=== PATIENT | female | born 1975 | race African-American/Black ===

== ENCOUNTER 2019-12-11 16:34 | Outpatient (CLI) | payer OTHER, BC, SELFPAY ==
--- NOTE | 2019-12-11 16:51 | ECG_ITS ---
Measurements Intervals [place] Rate: 67 P: 55 HI: 177 QRS: 57 QRSD: 88 T: 73 QT: 390 QTc: 412 Interpretive Statements SINUS RHYTHM POSSIBLE LEFT ATRIAL ENLARGEMENT BORDERLINE R WAVE PROGRESSION, ANTERIOR LEADS BORDERLINE ECG Electronically Signed On 12-11-2019 20:39:09 CDT by Ramakrishna Aquino D.O.
[2019-12-11 17:32] LABS: Hematocrit 37.4 % (37.0-47.0)
[2019-12-11 18:12] LABS: Albumin Level 3.9 g/dL (3.5-5.1); Prealbumin 21.6 mg/dL (17.6-36.0)
[2019-12-20 10:20] LABS: Vitamin B1 107
== END 2019-12-11 16:35 | disposition home or self-care (01) ==
PROVIDERS: Surgery Plastic and Reconstructive Surgery; Visit Provider Anesthesiology
DX: Z41.1 Encounter for cosmetic surgery (principal); Z01.818 Encounter for other preprocedural examination; R94.31 Abnormal electrocardiogram [ECG] [EKG]
CPT/HCPCS: 36415; 82040; 84134; 84425; 85014; 85018; 93005

== ENCOUNTER 2019-12-21 00:19 | Outpatient (CLI) | payer OTHER, BC, SELFPAY ==
[2019-12-21 17:37] LABS: SARS-CoV-2 RNA PCR Positive
== END 2019-12-21 00:20 | disposition home or self-care (01) ==
LOC: ANHCOVIDDT 00:19
PROVIDERS: Visit Provider Surgery Plastic and Reconstructive Surgery
DX: Z01.812 Encounter for preprocedural laboratory examination (principal); U07.1 COVID-19
CPT/HCPCS: 87635; C9803; U0003

== ENCOUNTER 2019-12-21 08:25 | Outpatient (CLI) | payer OTHER, BC, SELFPAY ==
[2019-12-21 09:17] LABS: Iron 24 ug/dL (37-170)
== END 2019-12-21 08:26 | disposition home or self-care (01) ==
PROVIDERS: Visit Provider Surgery Plastic and Reconstructive Surgery
DX: L57.4 Cutis laxa senilis (principal)
CPT/HCPCS: 36415; 83540

== ENCOUNTER 2020-01-29 16:56 | Outpatient (CLI) | payer OTHER, BC, SELFPAY ==
--- NOTE | ~2020-01-29 | XR_ITS ---
EXAMINATION: XR chest 2V DATE: 01/29/2020 17:14 INDICATION: Shortness of breath, cough and chest pain TECHNIQUE: PA and lateral views of the chest were obtained. COMPARISON: Chest radiograph dated 12/20/2016 FINDINGS: Increase in confluent airspace opacities in the left mid and lower lung zone consistent with worsenin g pneumonia. Additional less prominent airspace opacities in the right lower lung zone also likely re lated to pneumonia appear unchanged. No pneumothorax or definitive pleural effusion. Cardiomegaly. Ch olecystectomy clips in right upper quadrant. IMPRESSION: 1. Bilateral airspace opacities more prominent than with interval increase in the left mid and lower lung zones consistent with worsening pneumonia. 2. Cardiomegaly. Reviewed, dictated and finalized at location H. WASHER IMPRESSION: 1. Bilateral airspace opacities more prominent than with interval increase in t he left mid and lower lung zones consistent with worsening pneumonia. 2. Cardiomegaly.
== END 2020-01-29 16:57 | disposition home or self-care (01) ==
PROVIDERS: PCP Physician Assistant; Visit Provider Internal Medicine Rheumatology
DX: R06.02 Shortness of breath (principal); R07.9 Chest pain, unspecified; R05 Cough; I51.7 Cardiomegaly; R91.8 Other nonspecific abnormal finding of lung field
CPT/HCPCS: 71046

== ENCOUNTER 2020-02-04 07:33 | Outpatient (CLI) | payer OTHER, BC, SELFPAY ==
--- NOTE | ~2020-02-04 | MM_ITS ---
EXAMINATION: MM screening qian BI w ngozi HISTORY: Screening mammogram TECHNIQUE: Craniocaudal and mediolateral oblique 3-D tomosynthesis images were obtained and synthetic 2-D images were generated. CAD analysis was submitted and interpreted. COMPARISON: 03/15/2017 bilateral digital screening mammogram BREAST PARENCHYMAL COMPOSITION: There are scattered areas of fibroglandular density. FINDINGS: Status post bilateral reduction mammoplasty since 2018, with corresponding postoperative ch anges/scarring involving primarily the lower mid breast, left greater than right. Benign likely calci fication of fat necrosis is noted in the lower mid left breast. Otherwise there is no evidence of suspicious mass, calcification, or architectural distortion to sugg est malignancy in either breast. IMPRESSION: 1. Postoperative change from reduction mammoplasty of both breasts since 03/15/2017. No mammographic e vidence of malignancy. 2. Recommend routine screening mammography in one year. BI-RADS Category 2: Benign finding(s). Reviewed, dictated and finalized at location A. H STOCK SORTER IMPRESSION: 1. Postoperative change from reduction mammoplasty of both breasts since 018. No mammographic evidence of malignancy. 2. Recommend routine screening mammography in one year. BI-RADS Category 2: Benign finding(s).
== END 2020-02-04 07:34 | disposition home or self-care (01) ==
PROVIDERS: PCP Physician Assistant; Visit Provider Obstetrics & Gynecology
DX: Z12.31 Encounter for screening mammogram for malignant neoplasm of breast (principal)
CPT/HCPCS: 77063; 77067

== ENCOUNTER 2020-02-26 11:04 | Outpatient (CLI) | payer OTHER, BC, SELFPAY ==
--- NOTE | ~2020-02-26 | XR_ITS ---
EXAMINATION: XR chest 2V EXAM DATE: 02/26/2020 11:22 INDICATION: Shortness of breath, cough. Chronic. TECHNIQUE: Frontal and lateral projections of the chest obtained and reviewed. Comparison is made to prior examination from 01/29/2020. FINDINGS: Persistent moderate amount of chronic left-sided, small to moderate amount of right-sided ill-defined airspace disease. No pneumothorax or pleural effusion. Mild cardiomegaly. There are no os seous abnormalities identified. IMPRESSION: Bilateral chronic airspace disease, probably inflammatory or infectious etiology. Cardiom egaly. Reviewed, dictated and finalized at location B. CLEANER IMPRESSION: Bilateral chronic airspace disease, probably inflammatory or infect ious etiology. Cardiomegaly.
== END 2020-02-26 11:05 | disposition home or self-care (01) ==
LOC: ANHIMG 11:09
PROVIDERS: PCP Physician Assistant; Visit Provider Internal Medicine Pulmonary Disease
DX: R91.8 Other nonspecific abnormal finding of lung field (principal); I51.7 Cardiomegaly
CPT/HCPCS: 71046

== ENCOUNTER 2020-03-12 16:49 | Outpatient (CLI) | payer OTHER, BC, SELFPAY ==
--- NOTE | ~2020-03-12 | XR_ITS ---
EXAMINATION: XR chest 2V EXAM DATE: 03/12/2020 17:36 INDICATION: Restrictive lung disease, bronchitis. TECHNIQUE: Frontal and lateral projections of the chest obtained and reviewed. Comparison is made to prior examination from 02/26/2020. FINDINGS: There is cardiomegaly. Again there is extensive abnormal reticulation. If patient does not have infection or CHF clinically, then could be chronic interstitial lung disease. Consider CT chest without contrast. There is no pneumothorax suspected. There are no pleural effusions. Mild cardiomega ly is unchanged. IMPRESSION: Bibasilar predominant abnormal reticulation, could be edema, infection, chronic interstit ial lung disease. Clinical correlation, consider chest CT without contrast. Reviewed, dictated and finalized at location A. DER OPERATOR IMPRESSION: Bibasilar predominant abnormal reticulation, could be edema, infect ion, chronic interstitial lung disease. Clinical correlation, consider chest CT without contrast.
[2020-03-13 07:56] LABS: SARS-CoV-2 IgG Reactive
== END 2020-03-12 16:50 | disposition home or self-care (01) ==
PROVIDERS: PCP Physician Assistant; Visit Provider Internal Medicine Pulmonary Disease
DX: J20.9 Acute bronchitis, unspecified (principal); J98.09 Other diseases of bronchus, not elsewhere classified; U07.1 COVID-19
CPT/HCPCS: 36415; 71046; 86769

== ENCOUNTER 2020-03-23 16:22 | Outpatient (CLI) | payer OTHER, BC, SELFPAY ==
--- NOTE | ~2020-03-23 | CT_ITS ---
EXAMINATION:CT chest high resolution wo va DATE: 03/23/2020 16:40 INDICATION: Interstitial lung disease. Scleroderma. TECHNIQUE: Computed tomography (CT) of the chest was performed without intravenous contrast. Automate d exposure control and iterative reconstruction technique were employed. The dose-length product (DLP ) was 351.54 mGy-cm. COMPARISON: Chest CT 02/25/2010, CT abdomen and pelvis 03/31/2016 FINDINGS: There are diffuse patchy areas of lung disease with a lower lung predominance characterized by groundglass opacities, punctate parenchymal calcifications, peripheral septal thickening, and bro nchiectasis. The dominant feature is the groundglass opacities. These findings were present in milder form on 02/25/2010. No honeycombing. No pleural effusion. Cardiomegaly is noted. There is a small pe ricardial effusion. There is mild mediastinal lymphadenopathy, likely reactive. There are changes of cholecystectomy. There is mild thoracic spondylosis. IMPRESSION: 1. Diffuse chronic lung disease with worsening from 03/31/2016, consistent with chronic interstitial l minerva disease in a pattern of nonspecific interstitial pneumonia (NSIP). 2. Mild mediastinal lymphadenopathy, likely reactive. 3. Cardiomegaly. 4. Small pericardial effusion. Reviewed, dictated and finalized at location B. NESS PROGRAMMER IMPRESSION: 1. Diffuse chronic lung disease with worsening from 03/31/2016, consistent with chronic interstitial lung disease in a pattern of nonspecific interstitial pneu monia (NSIP). 2. Mild mediastinal lymphadenopathy, likely reactive. 3. Cardiomegaly. 4. Small pericardial effusion.
== END 2020-03-23 16:23 | disposition home or self-care (01) ==
PROVIDERS: PCP Physician Assistant; Visit Provider Internal Medicine Pulmonary Disease
DX: J84.9 Interstitial pulmonary disease, unspecified (principal); M34.9 Systemic sclerosis, unspecified; I31.3 Pericardial effusion (noninflammatory)
CPT/HCPCS: 71250

== ENCOUNTER 2020-06-05 10:28 | Outpatient (CLI) | payer OTHER, BC, SELFPAY ==
[2020-06-05 12:36] LABS: Free T4 Free Thyroxine 1.11 ng/mL (0.78-2.19)
[2020-06-05 13:56] LABS: Erythrocyte Sedimentation Rate 62 mm/hr (0-20)
[2020-06-08 04:01] LABS: Thyroid Peroxidase Antibodies 2 IU/mL (<9)
[2020-06-10 19:53] LABS: Thyrotropin Receptor Antibody <1.00 IU/L (<=2.00)
== END 2020-06-05 10:29 | disposition home or self-care (01) ==
PROVIDERS: PCP Physician Assistant; Referring Provider Internal Medicine Endocrinology, Diabetes & Metabolism; Visit Provider Internal Medicine Endocrinology, Diabetes & Metabolism
DX: E05.90 Thyrotoxicosis, unspecified without thyrotoxic crisis or storm (principal)
CPT/HCPCS: 36415; 83519; 84439; 84443; 84480; 85652; 86376

== ENCOUNTER 2020-10-12 17:05 | Outpatient (CLI) | payer OTHER, BC, SELFPAY ==
--- NOTE | ~2020-10-12 | XR_ITS ---
EXAMINATION: XR chest 2V DATE: 10/12/2020 17:21 INDICATION: Shortness of breath. Pneumonia. TECHNIQUE: PA and lateral views of the chest were obtained. COMPARISON: Chest radiograph dated 03/12/[address] dated 03/23/2020 and 02/25/2010. FINDINGS: Similar pattern of bibasilar predominant interstitial and airspace opacities in the bilateral mid and lower lung zones. No pleural effusion or pneumothorax. Cardiomegaly. Cholecystectomy clips in the ri ght upper quadrant. Visualized bones and soft tissues are unremarkable. IMPRESSION: 1. No significant interval change in basilar predominant interstitial and airspace opacities in the b ilateral mid and lower lung zones with CT appearance and chronologic progression most consistent with chronic interstitial lung disease in a nonspecific gaseous pneumonia (NSIP) pattern. Reviewed, dictated and finalized at location A. IMPRESSION: 1. No significant interval change in basilar predominant interstitial and airsp jarrett opacities in the bilateral mid and lower lung zones with CT appearance and chronologic progression most consistent with chronic interstitial lung disease in a nonspecific gaseous pneumonia (NSIP) pattern.
== END 2020-10-12 17:06 | disposition home or self-care (01) ==
LOC: ANHIMG 17:09
PROVIDERS: PCP Physician Assistant; Visit Provider Internal Medicine Pulmonary Disease
DX: R06.02 Shortness of breath (principal); J44.9 Chronic obstructive pulmonary disease, unspecified; J45.909 Unspecified asthma, uncomplicated
CPT/HCPCS: 71046

== ENCOUNTER 2021-04-21 16:06 | Outpatient (CLI) | payer OTHER, BC, SELFPAY ==
--- NOTE | ~2021-04-21 | XR_ITS ---
XR chest 2V DATE: 04/21/2021 16:28 INDICATION: Secondary pulmonary hypertension. History of scleroderma. TECHNIQUE: PA and lateral views COMPARISON: 10/22/2020 PA and lateral chest FINDINGS: There is cardiomegaly. There are patchy bilateral pulmonary infiltrates and/or interstitial fibrotic change, relatively stable since 10/22/2020. No pleural effusion or pneumothorax. Status post cholecystectomy. IMPRESSION: No significant change of bilateral pulmonary infiltrates and/or fibrotic changes since Reviewed, dictated and finalized at location B. MATIC BUFFER IMPRESSION: No significant change of bilateral pulmonary infiltrates and/or fib rotic changes since 10/22/2020
== END 2021-04-21 16:07 | disposition home or self-care (01) ==
LOC: ANHIMG 16:13
PROVIDERS: PCP Physician Assistant
DX: I27.20 Pulmonary hypertension, unspecified (principal); R91.8 Other nonspecific abnormal finding of lung field
CPT/HCPCS: 71046

== ENCOUNTER 2021-06-16 16:04 | Outpatient (CLI) | payer OTHER, SELFPAY ==
--- NOTE | ~2021-06-16 | CT_ITS ---
EXAMINATION: CT chest high resolution wo ma DATE: 06/16/2021 16:31 INDICATION: Pulmonary fibrosis. TECHNIQUE: Computed tomography (CT) of the chest was performed without intravenous contrast. Automate d exposure control and iterative reconstruction technique were employed. The dose-length product was 287.06 mGy-cm. COMPARISON: 03/23/2020. FINDINGS: Thoracic aorta: Minimal atherosclerotic calcification. Lung parenchyma and airways: Basilar predominant peribronchovascular and groundglass opacities, with innumerable peripheral punctate calcifications, bronchiectasis, and peripheral fibrosis. Thoracic inlet, axillae and chest wall: Unremarkable. Mediastinum: Prominent mediastinal lymph nodes. Heart and pericardium: Mild clinically. Small-volume pericardial effusion. Coronary artery calcifications: Absent. Pleura: No mass. Upper abdomen: No significant finding. Bones: bones IMPRESSION: Stable interstitial lung disease (NSIP pattern), borderline mediastinal lymphadenopathy, cardiomegaly and small pericardial effusion. IMPRESSION: 1. Reviewed, dictated and finalized at location K. IMPRESSION: Stable interstitial lung disease (NSIP pattern), borderline mediastinal lymphad enopathy, cardiomegaly and small pericardial effusion. IMPRESSION: 1.
--- NOTE | ~2021-06-16 | XR_ITS ---
EXAMINATION: XR chest 2V Exam Date/Time: 06/16/2021 16:23 CDT CLINICAL HISTORY: PULMONARY FIBROSIS, COUGH/SOB FEW WEEKS AGO - GETTING BETTER Comparison: Chest x-ray 04/21/2021, chest CT 03/23/2020. RESULT: Lines, tubes, and devices: Cholecystectomy clips. Lungs and pleura: Stable coarse mid and lower lung interstitial opacities. Cardiomediastinal silhouette: Stable cardiomediastinal silhouette. Other: No acute osseous or upper abdominal finding. IMPRESSION: Stable interstitial lung disease. Stable mild cardiomegaly. Reviewed, dictated and finalized at location K.
== END 2021-06-16 16:05 | disposition home or self-care (01) ==
PROVIDERS: PCP Physician Assistant; Visit Provider Internal Medicine Pulmonary Disease
DX: J84.10 Pulmonary fibrosis, unspecified (principal); J84.9 Interstitial pulmonary disease, unspecified
CPT/HCPCS: 71046; 71250

== ENCOUNTER 2021-07-07 14:50 | Outpatient (CLI) | payer OTHER, SELFPAY ==
--- NOTE | 2021-07-07 | ECHO_ITS ---
Patient Info Name: Gayle Jorge Age: 46 years : 1975 Gender: Female Ht: 65 in Wt: 253 lbs BSA: 2.35 m2 HR: 75 bpm BP: 127 / 88 mmHg Heart Rhythm: Sinus Rhythm Technical Quality: Fair Exam Date: 07/07/2021 3:07 PM Exam Location: [facility] Pulmonary Patient Status: Outpatient Admit Date: 07/07/2021 Staff Ordering Physician: DelbertJohn MD Journalists And Other Writers: Alyson Monk RDCS Attending Provider: Delbert, John Sin MD Referring Physician: Shane NEWSOME; Exam Type: CA echo doppler color flow Study Info Indications - pulmonary fibrosis Complete two-dimensional, color flow and Doppler transthoracic echocardiogram is performed. Summary 1. Complete two-dimensional, color flow and Doppler transthoracic echocardiogram is performed. 2. Left ventricular chamber dimension is normal. 3. Left ventricular systolic function is normal, estimated at 55-60%. 4. The left ventricular diastolic function is abnormal. 5. E/e' 10 is mildly elevated. 6. Left atrial chamber dimension is mildly enlarged. 7. There is mild tricuspid valve regurgitation. 8. Moderate pulmonary hypertension, estimated pulmonary arterial systolic pressure is 54 mmHg. 9. There is trace pulmonic regurgitation. 10. There is small circumferential pericardial effusion. Left Ventricle E/e' 10 is mildly elevated. Left ventricular chamber dimension is normal. Left ventricular systolic function is normal, estimated at 55-60%. The left ventricular diastolic function is abnormal. Right Ventricle Right ventricular systolic function is normal and with normal TAPSE 3.0 cm. Right ventricular chamber dimension is normal. Left Atria Left atrial chamber dimension is mildly enlarged. Right Atria Right atrial chamber dimension is normal. Aortic Valve The aortic valve is trileaflet. There is no aortic valve stenosis. There is no aortic valve regurgitation. Pulmonic Valve There is trace pulmonic regurgitation. Mitral Valve There is no mitral valve stenosis. There is no mitral valve regurgitation. Tricuspid Valve There is mild tricuspid valve regurgitation. Moderate pulmonary hypertension, estimated pulmonary arterial systolic pressure is 54 mmHg. Pericardium/Pleural No cardiac tamponade. There is small circumferential pericardial effusion. Inferior Vena Cava Normal inferior vena cava with >50% collapse upon inspiration consistent with normal right atrial pressure, 5 mmHg. Aorta The aortic root size at the sinus of Valsalva is normal. Left Ventricular Outflow Tract Name Value Normal LVOT 2D LVOT Diameter 2.0 cm LVOT Doppler LVOT Peak Gradient 5 mmHg LVOT Mean Gradient 2 mmHg LVOT VTI 22 cm LVOT VTI/AV VTI Ratio 0.6 LVOT Stroke Volume 68 ml LVOT CO 4.6 l/min LVOT CI 1.9 l/min/m2 Pulmonic Valve Name
== END 2021-07-07 14:51 | disposition home or self-care (01) ==
LOC: ANHCARD 14:51
PROVIDERS: PCP Physician Assistant; Visit Provider Internal Medicine Pulmonary Disease
DX: J84.10 Pulmonary fibrosis, unspecified (principal); I36.1 Nonrheumatic tricuspid (valve) insufficiency; I27.20 Pulmonary hypertension, unspecified
CPT/HCPCS: 93306

== ENCOUNTER 2021-12-01 17:05 | Outpatient (CLI) | payer OTHER, SELFPAY ==
[2021-12-01 17:26] LABS: Hematocrit 39.8 % (37.0-47.0); Hemoglobin 12.4 g/dL (12.0-15.0)
== END 2021-12-01 17:06 | disposition home or self-care (01) ==
PROVIDERS: PCP Physician Assistant; Referring Provider Anesthesiology; Visit Provider Obstetrics & Gynecology
DX: Z01.818 Encounter for other preprocedural examination (principal); D64.9 Anemia, unspecified; N92.0 Excessive and frequent menstruation with regular cycle
CPT/HCPCS: 36415; 85014; 85018; 86850; 86900; 86901

== ENCOUNTER 2021-12-07 01:53 | Day surgery (SDC) | payer OTHER, SELFPAY ==
[2021-11-30 10:06] VITALS: BMI 39.2
--- NOTE | 2021-11-30 10:17 | PC.NURSE ---
Report to the Outpatient Waiting Room, entrance under the green pavilion located off [facility], at time 6:00 on date 12/07/21. OR Time: 7:30. Time changes happen often and if your time is changed the preop area will call you the afternoon before. - You and your visitor will be asked to self-screen and do not enter if you have any COVID symptoms. - Only one visitor and NO children visitors are allowed at this time. YOU WILL BE ALLOWED 2 VISITORS AT A TIME ONCE YOU ARE IN YOUR ROOM AFTER SURGERY. - The patient visitor is requested to leave or wait in car when not with patient due to restrictions. - A mask is required within the hospital. Patients may have clear liquids (water, carbonated beverages, clear teas, apple juice) until 3 hours prior to surgery (4:30) with a maximum of 20 ounces. - No food from midnight until time of surgery Take the following medications with a SIP of water the morning of surgery: NIFEDIPINE Medications to discontinue per physician: VITAMINS/SUPPLEMENTS Date to take last dose: 12/03/21 ASK ABOUT AZATHIOPRINE AND HYDROXYCHLOROQUINE Please no make-up, nail setswana, hairspray, perfume, deodorant, or body powder the day of surgery. No jewelry (including any body piercings) or valuables the day of surgery, leave them at home. Please take a shower or bath the night before, or the morning of, surgery with an antibacterial soap. Wear comfortable, loose fitting clothing. - Jewelry must be removed prior to entering the operating room. Rings and piercings that are not removed may be cut off. - The hospital will not accept responsibility for valuables. - Please leave all valuables, including medications, at home the day of surgery. If you are going home after surgery, a licensed national flatbed truck driver must drive you home. YOU WILL BE SPENDING AT LEAST 1 NIGHT - NO public transportation without another adult. - We recommend that an adult stay with you for 24 hours following discharge. - We also recommend that you do not drive, make important decision, drink alcoholic beverages, or take any drugs that were not prescribed by your health care provider for at least 24 hours after your discharge time. Follow any additional instructions given to you from your surgeon. If you or anyone in your household have experienced Covid symptoms in the past week, please notify your surgeon or the nurse liaison at the phone number below for possible testing. Telephone instructions given to PANTERA TERAN and asked if any additional questions and then verbalized understanding. Patient advised to call surgeon office or pre surgery nurse liaison [phone] if any additional questions.
--- NOTE | 2021-12-06 12:32 | WPDANESEPPF ---
Anes - Initial Pre Proc Eval Procedure: Operation Date: 12/07/21 07:30 Proposed Procedures p Total Laparoscopic Hysterectomy with Bilateral Salpingectomy - Elliott Orozco MD Date/Time: 12/06/21 12:32 Surgeon: Elliott Orozco MD Pre Op Diagnosis: menorrhaghia Patient Data Age: 46 Gender: F Height: 1.65 m Weight: 107.05 kg Allergies Allergy/AdvReac Type Severity Reaction Status Date / Time shellfish derived Allergy Severe ITCHING, Verified 12/07/21 06:21 SWELLING oxycodone [From Percocet] AdvReac Mild Hallucinati Verified 12/07/21 06:21 ng SHELLFISH Allergy Intermediate TONGUE Uncoded 12/07/21 06:21 SWELLING, ITCHING Home Medications Medication Instructions Recorded Confirmed Type azathioprine 50 mg tablet 50 mg PO DAILY 08/14/19 12/07/21 History hydroxychloroquine 200 mg tablet 200 mg PO DAILY 08/14/19 12/07/21 History (Plaquenil) nifedipine 60 mg tablet,extended 60 mg PO DAILY 08/14/19 12/07/21 History release cholecalciferol (vitamin D3) 125 125 mcg PO DAILY 06/02/20 12/07/21 History mcg (5,000 unit) capsule ferrous fumarate 325 mg (106 mg 325 mg PO DAILY 06/02/20 12/07/21 History iron) tablet (Ferretts) Patient hx anesthesia problems: none Family hx anesthesia problems: none Results Review: All pre-operative results and documents have been reviewed as part of the pre-operative evaluation. [facility] Past Medical History Medical History (Updated 12/06/21 @ 12:33 by Rafat oHoks MD) Morbid obesity with BMI of 40.0-44.9, adult Scleroderma Surgical History Surgical History History of bilateral breast reduction surgery 2018 History of delivery 2013 History of cholecystectomy 2017 History of tonsillectomy and adenoidectomy 1992 Family History Family History Mother Family history of elevated blood lipids Father No problems noted. Other Diabetes mellitus Social History Social History Smoking status: Never smoker Second hand tobacco smoke exposure: No Alcohol intake: current Drinks per week: 2 Substance use: never Substance use type: does not use Living arrangements: with family Spiritual care concerns: No Anes - Eval Final PreProcedure Day of Procedure 12/06/21 12:32 Patient weight: obese Heart: regular rate and rhythm Lungs: clear to auscultation and normal air movement Airway: Mallampati scale class II Neurological: alert and oriented Last oral intake: >/= 8 hours ASA classification: III Emergent: no Anesthetic plan: proceed Anesthesia type and monitoring: general ETT Results Review: All pre-operative results and documents have been reviewed as part of the pre-operative evaluation. Informed Consent: The patient's anesthetic plan and its attendant risks and benefits were discussed with the patient/family/POA. Questions were solicited and answers provided to the satisfaction of the patient/family/POA.
[2021-12-07] VITALS (10 sets, daily range): BP systolic 115–150; BP diastolic 51–71; PULSE 51–65; RESP 16–20; TEMP 36.3–36.8; O2SAT 98–100
[2021-12-07] MEDS: ACETAMINOPHEN 500 MG TABLET 1000 MG PO (06:33)
[2021-12-07] MEDS: LACTATED RINGERS 1,000 ML 30 ML IV CONT (06:40)
[2021-12-07] MEDS: KETOROLAC 15 MG/ML VIAL (*BKC) IV PUSH (06:45)
--- NOTE | 2021-12-07 07:10 | WPDHPUPDATE1 ---
History and Physical Update Update Date/Time: 12/07/21 07:10 History and Physical has been reviewed, including an updated exam of the patient. There are NO changes in the patient's condition. Risks, benefits, and alternatives have been discussed and questions answered. Patient agrees to proceed with procedure.
[2021-12-07] MEDS: ceFAZolin 2 GM/D5W 50 ML 2 GM/50 ML BAG IVPB (07:27)
[2021-12-07] MEDS: ceFAZolin SODIUM 1 GM VIAL (08:13)
--- NOTE | 2021-12-07 09:16 | W.PM.PROC2 ---
Procedure Note - Detailed Date of Procedure 12/07/21 Pre-op Diagnosis menorrhaghia, fibroid tumors Post-op Diagnosis Same (With adhesions) Procedure Performed Total laparoscopic hysterectomy. Surgeon Elliott Orozco MD Anesthesia General Findings Adhesions over the ovaries uterus and tubes. Thin. Enlarged uterus with fibroids normal-appearing tubes and ovaries. Description of Procedure This patient was taken to the operating room. She was prepped and draped in the dorsal lithotomy position after induction of general anesthesia. The uterine manipulator and Neno cup were placed. This was done with a speculum and tenaculum. The speculum was placed. The cervix was grasped with a tenaculum. The stay sutures were placed at 3 and 9:00 a.m.. The stay sutures of 0 Vicryl were brought through the appropriately sized Neno cup. The tip of the ANASTASIYA manipulator was placed in the intrauterine cavity. The cup was slid into place around the cervix and into the fornices. It was locked into place. The sutures were then wrapped around the handle and tied under tension. A 5 mm skin incision was made in the left upper quadrant the abdomen. A 5 mm trocar was inserted into the intrauterine cavity under direct visualization of the scope. Pneumoperitoneum was achieved. A left lower quadrant 11 mm incision was made with scalpel. An 11 mm trocar was inserted into the anterior abdominal cavity under direct visualization the scope. A 5 mm infraumbilical incision was made with a scalpel and a 5 mm trocar was inserted the intra-abdominal cavity under direct visualization of the scope. Bilateral ureteral lysis was performed. This was done from the pelvic brim down to the uterine artery. This was done with careful dissection using sharp and blunt dissection. The fallopian tubes were removed bilaterally. The mesosalpinx around the fallopian tubes were cauterized transected with LigaSure cautery. This was done in a bilateral fashion from the ovary to the uterine cornua. The fallopian tube was transected at the uterine cornu and amputated. The tube was taken out the left lower quadrant trocar site. In a stepwise fashion along the lateral aspects of the uterus the round ligament and broad ligaments were cauterized transected down to the level of the uterine arteries. A bladder flap was created in the bladder was moved distally to the end of the cervix and over the Neno cup. The bilateral uterine arteries were cauterized and transected. Colpotomy was then performed. In a circumferential fashion the vagina was transected using unipolar cautery. The incision was made down on the Neno cup. The uterus and cervix were taken out through the vagina. A pneumo occluder was placed in the vagina. The vaginal cuff was closed with a 0 V lock suture in a running fashion. The pelvis was irrigated with copious amounts antibiotic irrigation. The ureters were again examined and found to be intact and flowing freely under the uterine arteries into the bladder. The bladder was intact. It was examined directly. The vagina was irrigated with Betadine solution after removal of the Pneumo occluder. The patient was taken to recovery room. She was stable condition. Sponge lap and needle counts were correct x2. Estimated Blood Loss 50 Drains Yes Packing No Pathology Yes Complications No immediate complications Condition Stable Disposition Floor
[2021-12-07] MEDS: fentaNYL CITRATE INJ (*CRX) 100 MCG/2 ML VIAL 25 MCG IV PUSH ×3 (09:56→10:33)
--- NOTE | 2021-12-07 09:59 | SUR.PHASEI ---
0958: Simple mask removed.
[2021-12-07] MEDS: KETOROLAC 30 MG/ML VIAL (*BKC) IV PUSH (11:00)
[2021-12-07] MEDS: HYDROcodone/acetaminophen (*CRX) 10-325 MG TABLET 1 TAB PO (15:15)
[2021-12-07] MEDS: SIMETHICONE 80 MG TAB.CHEW PO (15:15)
[2021-12-08 04:50] VITALS: BP 122/56; PULSE 81; RESP 16; TEMP 36.9
--- NOTE | 2021-12-08 07:20 | PM.GYNPNOP ---
DIRECTOR OF BANDS - A/P Postoperative Procedures: Procedures Operation Date: 12/07/21 07:30 Actual Procedure Side Surgeon p Total Laparoscopic Hysterectomy with Bilateral Salpingectomy Bilateral Elliott Orozco MD Postoperative day: 1 Postoperative status: doing well Postoperative plan: see orders Time Spent With Patient Time: Total time spent is greater than 50% in coordination of care (as documented) at patient's floor/unit and/or counseling patient: Time with patient: less than 15 minutes DIRECTOR OF BANDS- PN:Subj Post-Op Subjective Date/time seen: 12/08/21 07:20 Subjective: patient reports feeling better, patient has no complaints and pain is well controlled Exam Const: General: healthy appearing, comfortable and no acute distress Resp: Auscultation: clear to auscultation bilaterally, no rales, no rhonchi and no wheezes Cardio: Rate: regular rate Heart sounds: no click, no murmurs and no rubs GI: Inspection: non-distended Auscultation: normal bowel sounds Extrem: General: normal to inspection, no pedal edema and no calf tenderness DIRECTOR OF BANDS - PN: Obj Data Vital Signs Vital Signs: Vital Signs - 24 hr 12/07/21 09:26 12/07/21 09:40 12/07/21 09:55 Temperature 97.8 F Pulse Rate 58 L 58 L 53 L Respiratory Rate 16 18 16 Blood Pressure 115/64 125/67 131/71 Pulse Oximetry 100 100 100 Oxygen Delivery Simple Face Mask Simple Face Mask Simple Face Mask Oxygen Flow Rate 6 8 8 12/07/21 10:10 12/07/21 10:25 12/07/21 11:52 Temperature 97.4 F L Pulse Rate 55 L 53 L 51 L Respiratory Rate 18 16 16 Blood Pressure 131/69 142/70 H 134/68 Pulse Oximetry 98 98 98 Oxygen Delivery Nasal Cannula Nasal Cannula Oxygen Flow Rate 1 1 12/07/21 10:45 12/07/21 15:30 12/07/21 19:30 Temperature 98.2 F Pulse Rate 51 L 51 L 65 Respiratory Rate 16 16 16 Blood Pressure 150/69 H Pulse Oximetry 98 98 Oxygen Delivery Nasal Cannula Room Air Oxygen Flow Rate 1 12/08/21 04:50 Temperature 98.5 F Pulse Rate 81 Respiratory Rate 16 Blood Pressure 122/56 L Pulse Oximetry Oxygen Delivery Oxygen Flow Rate Intake/Output Intake/Output: Intake & Output 10/02/22 12/06/21 12/07/21 12/08/21 23:59 23:59 23:59 23:59 Intake Total 900 Output Total 1680 Balance -780 Meds/Results Medications: Active Medications Generic Name Dose Route Start Last Admin Trade Name Freq PRN Reason Stop Dose Admin Hydrocodone Bitart/Acetaminophen 1 tab 12/07/21 10:35 Hydrocodone/Acetaminophen (*Crx) 5-325 Mg Tablet PO Q3H PRN Pain Rated 5 or Less Hydrocodone Bitart/Acetaminophen 1 tab 12/07/21 10:35 12/07/21 15:15 Hydrocodone/Acetaminophen (*Crx) 10-325 Mg Tablet PO 1 tab Q3H PRN Administration Pain Rated 6 or Greater Azathioprine 50 mg 12/08/21 09:00 Azathioprine 50 Mg Tablet PO DAILY ON LICENSE OF [facility] Hydroxychloroquine Sulfate 200 mg 12/08/21 09:00 Hydroxychloroquine Sulfate 200 Mg Tablet PO DAILY ON LICENSE OF [facility] Ibuprofen 600 mg 12/07/21 10:35 Ibuprofen 600 Mg Tablet PO Q6H PRN Cramping Ketorolac Tromethamine 30 mg 12/07/21 10:35 12/07/21 11:00 Ketorolac 30 Mg/Ml Vial (*Bkc) IV PUSH 12/12/21 10:34 30 mg Q6H PRN Administration Pain Rated 4-6 Naloxone HCl 0.1 mg 12/07/21 10:35 Naloxone Hcl 0.4 Mg/Ml Vial IV PUSH Q2M PRN Respiratory rate less than 10 Nifedipine 60 mg 12/08/21 09:00 Nifedipine 30 Mg Tab.Er.24 PO DAILY ON LICENSE OF [facility] Ondansetron HCl 4 mg 12/07/21 10:35 Ondansetron Inj 4 Mg/2 Ml Vial IV PUSH Q6H PRN Nausea And Vomiting Simethicone 80 mg 12/07/21 15:13 12/07/21 15:15 Simethicone 80 Mg Tab.Chew PO 80 mg Q2HR PRN Administration Gas Discomfort
[2021-12-08] MEDS: HYDROcodone/acetaminophen (*CRX) 5-325 MG TABLET 1 TAB PO (07:39)
[2021-12-08 07:40] VITALS: BP 123/55; PULSE 71; RESP 18; TEMP 36.1; O2SAT 97
[2021-12-08] MEDS: IBUPROFEN 600 MG TABLET PO (07:40)
--- NOTE | 2021-12-08 09:26 | WPDANESPN ---
Anes - Prog Note Post-Op Date/Time: 12/08/21 09:26 Cardiovascular status: normal Respiratory status: normal Airway patency: baseline Mental status: baseline Post-Op hydration status: normal Vital Signs: Last Vital Signs Temp 97.0 F L 12/08/21 07:40 Pulse 71 12/08/21 07:40 Resp 18 12/08/21 07:40 BP 123/55 L 12/08/21 07:40 Pulse Ox 97 12/08/21 07:40 O2 Del Method Room Air 12/08/21 07:40 O2 Flow Rate 1 12/07/21 10:45 Pain Score (VAS): 0/10 I/O: Intake & Output 12/07/21 12/08/21 12/08/21 23:59 07:59 15:59 Intake Total 0 Balance 0 Post-procedural complaints: none Patient Feedback: Patient satisfied with anesthetic care.
== END 2021-12-08 09:45 | disposition home or self-care (01) ==
LOC: ANHSURGERY 06:04 → ANHOB2 10:36
PROVIDERS: PCP Physician Assistant; Visit Provider Obstetrics & Gynecology
PROC: 0UT9FZZ Resection of Uterus, Via Natural or Artificial Opening With Percutaneous Endoscopic Assistance (ICD-10-PCS; CPT 58571; principal; 2021-12-07 07:30)
DX: N92.0 Excessive and frequent menstruation with regular cycle (principal); N72 Inflammatory disease of cervix uteri; N80.03 Adenomyosis of the uterus; D25.9 Leiomyoma of uterus, unspecified; N70.91 Salpingitis, unspecified; N73.6 Female pelvic peritoneal adhesions (postinfective); M34.9 Systemic sclerosis, unspecified; E66.01 Morbid (severe) obesity due to excess calories; Z68.41 Body mass index [BMI] 40.0-44.9, adult
CPT/HCPCS: 58571; 36415; 85014; 85018; 86850; 86900; 86901; 88307; 99199; A9270; J0690; J1100; J1170; J1885; J2250; J2405; J2704; J2710; J3010; J7120

== ENCOUNTER 2021-12-29 09:31 | Outpatient (CLI) | payer OTHER, SELFPAY ==
--- NOTE | ~2021-12-29 | XR_ITS ---
XR chest 2V 12/29/2021 09:49 Indication: Right heart catheterization. Procedure: 2 view chest Comparison: Comparison to multiple prior studies sequentially, with oldest reviewed study dated 09/2020. Findings: Cardiomegaly. Patchy bilateral airspace disease is unchanged, which may represent a combina tion of pneumonia and/or fibrosis. No pleural effusion or pneumothorax. There are cholecystectomy cli ps. Impression: 1: Stable bilateral airspace disease, left greater than right, which may represent pneumonia and/or f ibrosis. Reviewed, dictated and finalized at location B. Impression: 1: Stable bilateral airspace disease, left greater than right, which may repres ent pneumonia and/or fibrosis.
== END 2021-12-29 09:32 | disposition home or self-care (01) ==
PROVIDERS: PCP Physician Assistant; Visit Provider Internal Medicine Pulmonary Disease
DX: Z98.890 Other specified postprocedural states (principal); R91.8 Other nonspecific abnormal finding of lung field
CPT/HCPCS: 71046

== ENCOUNTER 2022-01-14 08:02 | Outpatient (CLI) | payer OTHER, SELFPAY ==
--- NOTE | 2022-01-14 12:39 | WPDPFTINT ---
PFT Procedure Performed PFT Procedure Performed Plethysmography (Lung Vol) Diffusing Cap (DLCO) Flow Vol Loop Spirometry w/o Bronchodil PFT Interpretation Lung volumes were measured with the body plethysmography method. The diminished amcmue-vjw-mzzlz lung volumes are indicative of restrictive respiratory disease. Spirometry showed diminished expiratory flow rates and a normal FEV1 to FVC ratio of 81%, also consistent with restrictive respiratory disease. Lung diffusion capacity is severely reduced at 33% predicted. The flow volume loop is consistent with restrictive respiratory disease. Impression: Moderate restrictive respiratory disease. Severely reduced lung diffusion capacity.
== END 2022-01-14 08:03 | disposition home or self-care (01) ==
PROVIDERS: PCP Physician Assistant; Visit Provider Internal Medicine Pulmonary Disease
DX: R94.2 Abnormal results of pulmonary function studies (principal); Z79.890 Hormone replacement therapy
CPT/HCPCS: 94375; 94726; 94729

== ENCOUNTER 2022-05-25 15:41 | Outpatient (CLI) | payer OTHER, SELFPAY ==
--- NOTE | ~2022-05-25 | US_ITS ---
Thyroid ultrasound. Clinical History: Abnormal thyroid function tests Findings: Real-time sonography of the thyroid gland was performed. The right lobe measures 5.2 x 1.3 x 1.3 cm. The left lobe measures 5.3 x 1.0 x 1.7 cm. The isthmus is 4 mm in AP diameter. Thyroid par enchyma is mildly heterogeneous without discrete nodule. Impression: Minimally heterogeneous parenchyma without discrete nodule. Depending on clinical status and thyroid function results, consider nuclear medicine thyroid uptake scan as indicated. Reviewed, dictated and finalized at location M. Impression: Minimally heterogeneous parenchyma without discrete nodule. Depending on clinic al status and thyroid function results, consider nuclear medicine thyroid uptak e scan as indicated.
== END 2022-05-25 15:42 | disposition home or self-care (01) ==
PROVIDERS: PCP Physician Assistant; Visit Provider Internal Medicine
DX: R94.6 Abnormal results of thyroid function studies (principal)
CPT/HCPCS: 76536

== ENCOUNTER 2024-02-29 11:22 | Outpatient (CLI) | payer OTHER, SELFPAY ==
--- NOTE | ~2024-02-29 | MMUS_ITS ---
EXAMINATION TYPE: US breast LT limited, MM diagnostic qian BI w ngozi COMPARISON: 02/04/2020 REASON FOR STUDY: 48-year-old woman with a history of reduction mammoplasty in 2018 presents with pal pable abnormality in the lower inner quadrant of the left breast for diagnostic evaluation. TECHNIQUE: Bilateral mediolateral oblique and craniocaudal views were obtained digitally with 3-D ma mmogram (digital breast tomosynthesis) with CAD. Computer-aided detection was utilized in evaluation of this examination. BREAST PARENCHYMAL COMPOSITION:Not Dense. There are scattered areas of fibroglandular density. FINDINGS: Indeterminate parenchymal pattern (architectural distortion) within the lower inner left breast (with in the region of palpable concern). No suspicious microcalcifications are identified. No discrete masses are noted. The right breast is unremarkable. TECHNIQUE: Sonographic evaluation of the left breast was performed, corresponding to the region of palpable conc murtaza. FINDINGS: At the 5:00 position of the left breast approximately 5 cm from the nipple is a shadowing focus of de creased echogenicity with angular margins for which ultrasound-guided biopsy is recommended. Sonographic evaluation of the remainder of the left breast demonstrates benign fibroglandular element s without a cystic or solid lesion of concern. IMPRESSION: Findings within the region of palpable concern for which ultrasound-guided biopsy is recommended. BI-RADS CATEGORY: 5: Highly suggestive of malignancy for which tissue diagnosis is needed. Reviewed, dictated and finalized at location A. N COMBINE DRIVER IMPRESSION: Findings within the region of palpable concern for which ultrasound-guided biop sy is recommended. BI-RADS CATEGORY: 5: Highly suggestive of malignancy for which tissue diagnosis is needed.
== END 2024-02-29 11:23 | disposition home or self-care (01) ==
PROVIDERS: PCP Physician Assistant; Visit Provider Nurse Practitioner
DX: R92.8 Other abnormal and inconclusive findings on diagnostic imaging of breast (principal)
CPT/HCPCS: 76642; 77062; 77066; G0279

== ENCOUNTER 2024-09-09 16:16 | Outpatient (CLI) | payer OTHER, SELFPAY ==
--- NOTE | ~2024-09-09 | CT_ITS ---
CT Scan of the Chest without Contrast: Clinical Indication: Progressive systemic sclerosis Technique: Contiguous sections were acquired throughout the chest without intravenous contrast. Dose reduction technique was used on this scan by utilizing automated exposure control and iterative recon struction technique. The dose-length product (DLP) was 132.72 mGy-cm. COMPARISON: 06/16/2021 Findings: There is no evidence of any significant mediastinal, hilar or axillary lymphadenopathy. The mediastin al soft tissues appear normal. Small pericardial effusion present. No pleural effusions. Extensive bibasilar consolidation, somewhat similar appearance to prior exam with more patchy airspac e disease in the superior segment of the lower lobes, left upper lobe and lingula, peripheral right u pper lobe, and right middle lobe. There are scattered areas of hypodensity throughout the areas of co nsolidation. Images through the upper abdomen reveal no abnormalities. Impression: Stable extensive patchy airspace consolidation with scattered hyperdensities and interstitial thicken ing, worst in the lung bases. Findings are compatible with chronic interstitial disease or other body cleaner davie pneumonia. Small pericardial effusion. Reviewed, dictated and finalized at [facility]. Impression: Stable extensive patchy airspace consolidation with scattered hyperdensities an d interstitial thickening, worst in the lung bases. Findings are compatible wit h chronic interstitial disease or other chronic pneumonia. Small pericardial effusion.
--- OUTSIDE RECORDS SUMMARY | 2024-09-09 16:25 | XMS_ITS | Encounter Summary ---
Author Organization [facility] Health Address [address] [address] Care Team Providers Care Webbing Inspector Name Role Phone Mickey Gillespie PA-C Primary Care Provide r Rosalio Rankin MD Unavailable [phone] Reason for Visit * Reason Onset Date Comments Reschedule Appointment 03/30/2023 Encounter Details Date Type Department Care Team (Late st Contact Info) Description 03/30/2023 Telephone [facility] - Centralized Scheduling [address] [place] [address] Rolando Kathleen MD [address] OF PULMONARY/[place] [address] Reschedule Appointment Social History Tobacco Use Types Packs/Day Years Used Date Smoking Tobacco: Never Smokeless Tobacco: Never Alcohol Use Standard Drinks/Week Comments Yes 0 (1 standard drink = 0.6 oz pur e alcohol) social PHQ-2 Answer Date Recorded Patient Health Questionnaire-2 Score 0 02/22/2023 Comments No Sex and Gender Information Value Date Recorded Sex Assigned at Not on file Legal Sex Female 9:53 AM 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 Kathleen to 05/09/23. Gayle stated that this appointment has been rescheduled multiple times and needs to be seen at an earlier date. I have also added this appointment to the wait list. CLEANING MACHINE OPERATOR documented in this encounter Plan of Treatment Upcoming Encounters Date Type Department Care Team (Late st Contact Info) Description 11/08/2024 9:00 AM CDT Office Visit [facility] - Pulmonology [address] [place] [phone] Rolando Kathleen MD [address] [place] [address] [address] DIV OF PULMONARY/[place] [phone] 02/11/2025 8:30 AM SEED CLEANING MACHINE OPERATOR Office Visit [facility] - Pulmonology [address] [place] [phone] Rolando Kathleen MD [address] [place] [address] [address] DIV OF PULMONARY/[place] [phone] 02/11/2025 3:00 PM SEED CLEANING MACHINE OPERATOR [facility] [address] [place] [phone] Kristen Mcgarry MD [address] [place] [address] [address] [place] [phone] documented as of this encounter Visit Diagnoses Not on filedocumented in this encounter Care Teams Webbing Inspector Relationship Specialty Start Date End Date Mickey Gillespie PA-C [address] [facility] [address] [place] [address] PCP - General Physician Coffee Roaster 09/20/21 Rosalio Rankin MD [facility] [facility] [address] [place] [address] Cardiology 09/20/21 documented as of this encounter
--- OUTSIDE RECORDS SUMMARY | 2024-09-09 16:25 | XMS_ITS | Encounter Summary ---
Author Organization [facility] Healthcare Address [address] [place] [address] Care Team Providers Care Prevention Coordinator Name Role Phone Unavailable Primary Care Provider Unavailabl e Reason for Visit * Diagnostic Imaging (Routine) - Pending Review Specialty Diagnoses / Procedures Referred By Sharif savage Referred To Contact Procedures Breast Imaging Screening Outside Reference Mindi De Dios NP Phone: tel: fax: Referral ID Status Reason Start Date Expiration Date V isits Requested Visits Authorized [id number] Pending Review 03/19/2024 04/18/2025 1 1 Encounter Details Date Type Department Care Team (Late st Contact Info) Description 03/15/2017 Hospital Encounter [facility] [address] [place] [id number] Social History Tobacco Use Types Packs/Day Years Used Date Smoking Tobacco: Never Alcohol Use Standard Drinks/Week Comments No 0 (1 standard drink = 0.6 oz pur e alcohol) Comments Unknown Sex and Gender Information Value Date Recorded Sex Assigned at Not on file Legal Sex Female 2:38 AM HERD TESTER Gender Identity Not on file Sexual Orientation Not on file documented as of this encounter Plan of Treatment Not on file documented as of this encounter Procedures Procedure Name Priority Date/Time Associated Diagnosis Comments BREAST IMAGING MG SCREENING OUTSIDE REFERENCE Routine 03/15/2017 12:00 AM HERD TESTER documented in this encounter Results * Breast Imaging Screening Outside Reference (03/15/2017 12:00 AM HERD TESTER) Impressions RAD_MAMMO_[facility] - 03/19/2024 7:56 PM HERD TESTER These images are for Reference purposes only and have not been reviewed by [facility]iology. There will be no report generated by a [facility] Radiologist. Narrative [facility]_MAMMO_[facility] - 03/19/2024 7:56 PM HERD TESTER EXAMINATION: Images For Reference Purposes Only us Mindi De Dios NP IMG MAMMO PROCEDURES Final Res ult [facility] documented in this encounter Visit Diagnoses Not on filedocumented in this encounter
--- OUTSIDE RECORDS SUMMARY | 2024-09-09 16:25 | XMS_ITS | Encounter Summary ---
Author Organization [facility] Health Address [address] [facility] [place] [address] Care Team Providers Care Computer Processing Scheduler Name Role Phone Mickey Gillespie PA-C Primary Care Provide r Rosalio Rankin MD Unavailable [phone] Encounter Details Date Type Department Care Team (Late st Contact Info) Description 07/10/2024 Telephone [facility] - Pulmonology [address] [facility], [place] [address] Rolando Kathleen MD [address] [place] [address] DIV OF PULMONARY/[place] [address] Social History Tobacco Use Types Packs/Day Years Used Date Smoking Tobacco: Never Smokeless Tobacco: Never Alcohol Use Standard Drinks/Week Comments Yes 0 (1 standard drink = 0.6 oz pur e alcohol) social PHQ-2 Answer Date Recorded Patient Health Questionnaire-2 Score 0 02/22/2023 Comments No Sex and Gender Information Value Date Recorded Sex Assigned at Not on file Legal Sex Female 9:53 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 Answer Date of Assessment Author No 06/07/2023 11:55 AM CDT Carmella Rodriguez RN * Is person blind or have serious difficulty seeing? Answer Date of Assessment Author No 06/07/2023 11:55 AM CDT Carmella Rodriguez RN * Does person have serious difficulty walking/climbing stairs? Answer Date of Assessment Author No 06/07/2023 11:55 AM CDT Carmella Rodriguez RN * Does person have difficulty dressing/bathing? Answer Date of Assessment Author No 06/07/2023 11:55 AM CDT Carmella Rodriguez RN * Does person have difficulty doing errands alone? Answer Date of Assessment Author No 06/07/2023 11:55 AM CDT Carmella Rodriguez RN documented as of this encounter Mental Status * Does person have difficulty concentrating/remembering/making decisions? Answer Entry Date Author No 06/07/2023 11:55 AM CDT Carmella Rodriguez RN documented in this encounter Miscellaneous Notes * Telephone Encounter - Viviana Sandoval RN - 07/15/2024 3:35 PM CDT Faxed signed by Provider. * Telephone Encounter - Sandy Mcdaniel - 07/10/2024 11:03 AM CDT Current Provider: Dr. Rolando Kathleen Reason for Call: [facility] is calling to have Dr. Kathleen/Dr. Ortiz sign papers for Gayle Jorge.Please sign and fax back Any questions call [facility] [phone] Ext [phone] Patient Call Back Number: [phone] documented in this encounter Plan of Treatment Upcoming Encounters Date Type Department Care Team (Late st Contact Info) Description 11/08/2024 9:00 AM CDT Office Visit [facility] - Pulmonology [address] [place] [address], [place] [phone] Rolando Kathleen MD [address] [place] [address] 2L DIV OF PULMONARY/[place] [address] 02/11/2025 8:30 AM HAIR BOILER Office Visit [facility] - Pulmonology [address] [place] [address], [place] [phone] Rolando Kathleen MD [address] [place] [address] 2L DIV OF PULMONARY/[place] [address] 02/11/2025 3:00 PM HAIR BOILER Office Visit [facility] - Rheumatology [address] [place] [address], [place] [phone] Kristen Mcgarry MD [facility] 2L [place] [address] documented as of this encounter Visit Diagnoses Not on filedocumented in this encounter Care Teams Computer Processing Scheduler Relationship Specialty Start Date End Date Mickey Gillespie PA-C [address] [facility] [address] [place] [address] PCP - General Physician Manager Housekeeping 09/20/21 Rosalio Rankin MD [address] [place] [address] Cardiology 09/20/21 documented as of this encounter
--- OUTSIDE RECORDS SUMMARY | 2024-09-09 16:25 | XMS_ITS | Clinical Summary ---
Author Organization [facility] Address [address] [facility] [place] [address] Care Team Providers Care Tarp Repairer Name Role Phone Mickey Gillespie PA-C Primary Care Provide r Rosalio Rankni MD Unavailable [phone] Source Comments [facility] Affiliates and Associated Physician Practices is amultiple site organization consisting of ambulatory clinics and hospital sitesin [place] and [place]. This disclosure is being madepursuant to the Care Everywhere program and may not contain all information available regarding this patient. Last updated 17.[facility] Allergies Active Allergy Reactions Criticality Noted Date Comments Prochlorperazine Unknown 04/09/2024 Shellfish-Derived Products Swelling,Angioedema High 09/23/2013 Tongue, itchy throat Medications * Be aware that medications may not be up to date on this document. Alwaysverify current medications with the patient. multivitamins (ONE A DAY) capsule Take 1 (one) capsule by mouth once daily Active Cholecalcifero l (VITAMIN D3 PO) Take 1 tablet by mouth once daily Active hydroxychloroq uine (Plaquenil) 200 MG tablet Take 2 (two) tablets by mouth once daily 90 tablet 3 5 Active tirzepatide (Mounjaro) 15 MG/0.5ML injection Inject by subcutaneous route for 28 days. 5 Active NIFEdipine CR osmotic 24hr (Procardia-XL) 60 MG tablet Take 1 (one) tablet by mouth once daily 90 tablet 3 5 Active mycophenolate (Cellcept) 500 MG tablet Take 3 (three) tablets by mouth 2 times daily 222 tablet 8 5 Active mycophenolate (Cellcept) 500 MG tablet TAKE 3 TABLETS BY MOUTH TWICE DAILY 222 tablet 8 4 025 Discontin ued(Reord er) NIFEdipine CR osmotic 24hr (Procardia-XL) 60 MG tablet TAKE 1 TABLET BY MOUTH ONCE DAILY 90 tablet 3 4 025 Discontin ued(Reord er) Active Problems Problem Noted Date Diagnosed Date Pericardial effusion without cardiac tamponade 0 05/09/2023 HTN (hypertension), benign 09/20/2021 Pulmonary hypertension 09/20/2021 Progressive systemic sclerosis 08/10/2017 Encounter for long-term (cur rent) use of high-risk medication 08/10/2017 Encounter for therapeutic drug monitoring 2017 Encounters Date Type Department Care Team Description 09/09/2024 Telephone [facility] - Rheumatology [address] [place] [phone] Kristen Mcgarry MD Order 09/04/2024 Telephone [facility] - Pulmonology [address] [place] [phone] Carmina Gersham RN Future Appointment (/) 08/28/2024 2:20 PM CDT Office Visit [facility] - Rheumatology [address] [place] [phone] Kristen Mcgarry MD Progressive systemic sclerosis (HCC) (Primary Dx); Encounter for long-term (current) use of high-risk medication; Encounter for therapeutic drug monitoring; ILD (interstitial lung disease) (HCC) 08/28/2024 Travel 07/12/2024 Orders Only [facility] - Rheumatology [address] [place] [phone] Kristen Mcgarry MD Progressive systemic sclerosis (HCC); Encounter for long-term (current) use of high-risk medication; Encounter for therapeutic drug monitoring 07/10/2024 Telephone [facility] - Pulmonology [address] [place] [phone] Rolando Kathleen MD 06/13/2024 Telephone [facility] - Pulmonology [address] [place] [phone] Rolando Kathleen MD Follow-up Report from Last 3 Months Immunizations Immunization Administration Dates Next Due Covid Pfizer primary monoval ent 12+ yr 0.3mL Purple cap 07/11/2020,06/20/2020 PNEUMOCOCCAL PCV20 CONJ VAC IM 07/20/2022 Family History Medical History Relation Name Comments Scleroderma Neg Hx Social History Tobacco Use Types Packs/Day Years Used Date Smoking Tobacco: Never Smokeless Tobacco: Never Tobacco Cessation:Counseling Given: Not Answered Alcohol Use Standard Drinks/Week Comments Yes 0 (1 standard drink = 0.6 oz pur e alcohol) social PHQ-2 Answer Date Recorded Patient Health Questionnaire-2 Score 0 08/28/2024 Comments No Sex and Gender Information Value Date Recorded Sex Assigned at Not on file Legal Sex Female 9:53 AM SUPPLY CHAIN DEVELOPMENT MANAGER Gender Identity Not on file Sexual Orientation Not on file Last Filed Vital Signs Vital Sign Reading Time Taken Comments Blood Pressure 108/63 08/28/2024 2:28 PM CDT Pulse 56 08/28/2024 2:28 PM CDT Temperature 36.5 C (97.7 F) 08/28/2024 2:28 PM CDT Respiratory Rate 10 06/07/2023 12:00 PM CDT Oxygen Saturation 94% 08/28/2024 2:28 PM CDT Inhaled Oxygen Concentration - - Weight 87 kg (191 lb 12.8 oz) 08/28/2024 2:28 PM CDT Height 165.1 cm (5' 5) 08/28/2024 2:28 PM CDT Body Mass Index 31.92 08/28/2024 2:28 PM CDT Plan of Treatment Upcoming Encounters Date Type Department Care Team (Late st Contact Info) Description 11/08/2024 9:00 AM CDT Office Visit [facility] - Pulmonology [address] [place] [address], [place] [address] Rolando Kathleen MD [address] [place] [address] 2L DIV OF PULMONARY/[place] [phone] 02/11/2025 8:30 AM SUPPLY CHAIN DEVELOPMENT MANAGER Office Visit [facility] - Pulmonology [address] [place] [phone] Rolando Kathleen MD [address] [place] [address] 2L DIV OF PULMONARY/[place] [phone] 02/11/2025 3:00 PM SUPPLY CHAIN DEVELOPMENT MANAGER Office Visit [facility] - Rheumatology [address] [place] [phone] Kristen Mcgarry MD [address] [place] [address] 2L [place] [phone] Health Maintenance Due Date Last Done Comments COLOGUARD (AGES 45-75) - COLON CA SCREENING 1976 COLON MONITORING 1976 COLONOSCOPY - COLON CA SCREENING 1976 CT COLONOGRAPHY - COLON CA SCREENING 1976 Colorectal Cancer Screening 1976 FIT - COLON CA SCREENING 1976 FLEX SIG - COLON CA SCREENING 1976 MAMMOGRAM 1976 HIV SCREENING 05/16/1991 HEPATITIS C SCREENING 05/11/1994 DTAP/TDAP/TD VACCINES (1 - Tdap) 05/16/1995 HEPATITIS B VACCINE (1 of 3 - 19+ 3-dose series) 05/16/1995 ZOSTER VACCINE (1 of 2) 05/16/1995 COVID-19 VACCINE (3 - Pfizer risk series) 08/08/2020 07/11/2020, 06/20/2020 PAP SMEAR 02/02/2024 02/01/2021 INFLUENZA VACCINE (#1) 2024 LIPID TESTING 02/01/2026 02/01/2021 SCREENING FOR DIABETES 08/24/2027 , 03/19/2024, 12/07/2023, Additional history exists PNEUMOCOCCAL VACCINE Completed 07/20/2022 DEPRESSION SCREENING Completed 08/28/2024, 10/26/2022, 07/28/2021 HIB VACCINE Aged Out No longer eligi ble based on patient's age to complete this topic HPV VACCINE Aged Out No longer eligi ble based on patient's age to complete this topic MENINGOCOCCAL (Group B) VACCINE SHARED DECISION-MAKING Aged Out No longer eligible based on patient's age to complete this topic MENINGOCOCCAL GROUPS A/C/Y/W VACCINE Aged Out No longer eligible based on patient's age to complete this topic Procedures Procedure Name Priority Date/Time Associated Diagnosis Comments ERYTHROCYTE SEDIMENTATION RATE Routine 08/23/2024 11:39 AM CDT Progressive systemic sclerosis (HCC) Encounter for long-term (current) use of high-risk medication Encounter for therapeutic drug monitoring C-REACTIVE PROTEIN Routine 08/23/2024 11 :39 AM CDT Progressive systemic sclerosis (HCC) Encounter for long-term (current) use of high-risk medication Encounter for therapeutic drug monitoring COMPREHENSIVE METABOLIC PANEL Routine 08/23/2024 11:39 AM CDT Progressive systemic sclerosis (HCC) Encounter for long-term (current) use of high-risk medication Encounter for therapeutic drug monitoring CBC W AUTO DIFFERENTIAL Routine 08/23/2024 11:39 AM CDT Progressive systemic sclerosis (HCC) Encounter for long-term (current) use of high-risk medication Encounter for therapeutic drug monitoring from Last 3 Months Results * C-REACTIVE PROTEIN (08/23/2024 11:39 AM CDT) C-Reactive Protein 1 0 - 10 mg/L [facility] INSURANCE BILL Blood BLOOD SPECIMEN / Unknown 08/23/2024 11:39 AM CDT 08/23/2024 Narrative [facility] INSURANCE BILL - 08/24/2024 7:09 AM CDT Performed at: [address] [id number] Review Rn: Jarad Hooper PhD, Phone: [phone] Kristen Mcgarry MD LAB - CHEMISTRY ORDERA BLES Final Result Performing Organization Address City/[facility]/ZIP Co de Phone Number [facility] INSURANCE BILL [address] [place] [address] * (ABNORMAL) ERYTHROCYTE SEDIMENTATION RATE (08/23/2024 11:39 AM CDT) Pathologist [facility] Erythrocyte Sedimentation Rate Westergren 33(H) 0 - 32 mm/hr [facility] INSURANCE BILL Blood BLOOD SPECIMEN / Unknown 08/23/2024 11:39 AM CDT 08/23/2024 Narrative [facility] INSURANCE BILL - 08/24/2024 7:09 AM CDT Performed at: 01 - [address] [id number] Review Rn: Jarad Hooper PhD, Phone: [phone] Kristen Mcgarry MD LAB - HEMATOLOGY ORDER STAR Final Result Performing Organization Address City/[facility]/ZIP Co de Phone Number [facility] INSURANCE BILL [address] [place] [address] * CBC WITH DIFFERENTIAL (08/23/2024 11:39 AM CDT) [facility] WBC 6.8 3.4 - 10.8 x10E3/uL [facility] INSURANCE BILL RBC 4.26 3.77 - 5.28 x10E6/uL [facility] INSURANCE BILL Hemoglobin 12.9 11.1 - 15.9 g/dL [facility] INSURANCE BILL Hematocrit 40.6 34.0 - 46.6 % [facility] INSURANCE BILL MCV 95 79 - 97 fL [facility] INSURANCE BILL MCH 30.3 26.6 - 33.0 pg [facility] INSURANCE BILL MCHC 31.8 31.5 - 35.7 g/dL [facility] INSURANCE BILL RDW 12.7 11.7 - 15.4 % [facility] INSURANCE BILL Platelet Count 241 150 - 450 x10E3/uL [facility] INSURANCE BILL Granulocytes % 68 Not Estab. % [facility] INSURANCE BILL Lymphocytes % 23 Not Estab. % [facility] INSURANCE BILL Monocytes % 6 Not Estab. % [facility] INSURANCE BILL Eosinophils % 2 Not Estab. % [facility] INSURANCE BILL Basophils % 1 Not Estab. % [facility] INSURANCE BILL Granulocytes Absolute 4.7 1.4 - 7.0 x10E3/uL [facility] INSURANCE BILL Lymphocytes Absolute 1.6 0.7 - 3.1 x10E3/uL [facility] INSURANCE BILL Monocytes Absolute 0.4 0.1 - 0.9 x10E3/uL [facility] INSURANCE BILL Eosinophils Absolute 0.2 0.0 - 0.4 x10E3/uL [facility] INSURANCE BILL Basophils Absolute 0.0 0.0 - 0.2 x10E3/uL [facility] INSURANCE BILL Immature Granulocytes 0 Not Estab. % [facility] INSURANCE BILL Immature Granulocytes Absolute 0.0 0.0 - 0.1 x10E3/uL [facility] INSURANCE BILL Blood BLOOD SPECIMEN / Unknown 08/23/2024 11:39 AM CDT 08/23/2024 Narrative [facility] INSURANCE BILL - 08/24/2024 7:09 AM CDT Performed at: [address] [id number] Review Rn: Jarad Hooper PhD, Phone: [phone] Kristen Mcgarry MD LAB - HEMATOLOGY ORDER STAR Final Result [facility] INSURANCE BILL [address] [place] [address] * (ABNORMAL) COMPREHENSIVE METABOLIC PANEL (08/23/2024 11:39 AM CDT) [facility] Glucose 66(L) 70 - 99 mg/dL [facility] INSURANCE BILL BUN 12 6 - 24 mg/dL [facility] INSURANCE BILL Creatinine 0.80 0.57 - 1.00 mg/dL [facility] INSURANCE BILL eGFR by CKD-EPI 91 >59 mL/min/1.7 3 [facility] INSURANCE BILL BUN/Creatinine Ratio 15 9 - 23 [facility] INSURANCE BILL Sodium 140 134 - 144 mmol/L [facility] INSURANCE BILL Potassium 4.4 3.5 - 5.2 mmol/L [facility] INSURANCE BILL Chloride 103 96 - 106 mmol/L [facility] INSURANCE BILL CO2 22 20 - 29 mmol/L [facility] INSURANCE BILL Calcium 9.2 8.7 - 10.2 mg/dL [facility] INSURANCE BILL Protein Total 7.2 6.0 - 8.5 g/dL [facility] INSURANCE BILL Albumin 4.1 3.9 - 4.9 g/dL [facility] INSURANCE BILL Globulin Total 3.1 1.5 - 4.5 g/dL [facility] INSURANCE BILL Bilirubin Total 0.4 0.0 - 1.2 mg/dL [facility] INSURANCE BILL Alkaline Phosphatase 83 44 - 121 IU/L [facility] INSURANCE BILL AST 34 0 - 40 IU/L [facility] INSURANCE BILL ALT 22 0 - 32 IU/L [facility] INSURANCE BILL Blood BLOOD SPECIMEN / Unknown 08/23/2024 11:39 AM CDT 08/23/2024 Narrative [facility] INSURANCE BILL - 08/24/2024 7:09 AM CDT Performed at: 01 - [address] [id number] Review Rn: Jarad Hooper PhD, Phone: [phone] us Kristen Mcgarry MD LAB - CHEMISTRY ANASTASIA RUBIO Final Result [facility] INSURANCE BILL [address] [place] [address] from Last 3 Months Insurance [employer] * Guarantor: AMARJIT MONTES DE OCA Account Type Relation to Patient Date of Phone Billing Address Personal/Family Other Advance Directives * Full Code (Latest Code Status on File) Date Activated Date Inactivated Comments 09/27/2021 8:49 AM 09/27/2021 10:22 AM Care Teams Tarp Repairer Relationship Specialty Start Date End Date Mickey Gillespie PA-C [address] [place] [address] PCP - General Physician Gambling Cashier 09/20/21 Rosalio Rankin MD [address] [facility] [address] [place] [address] Cardiology 09/20/21
--- OUTSIDE RECORDS SUMMARY | 2024-09-09 16:25 | XMS_ITS | Referral Summary ---
Author Organization [address] Address [address] [place] [phone] Care Team Providers Care Php Programmer Name Role Phone Ame Farias HUMAN CAPITAL CONSULTANT Primary Care Provider Allergies Active Allergy Reactions Criticality Noted Date Comments Prochlorperazine Unknown 04/09/2024 Shellfish Containing Products Other (See comments) Low 04/09/2024 shellfish derived Unclassified Drug Hives,Itching,Swell ing Medium 04/09/2024 Reaction: hives, itching, swelling, Medications hydroxychloroqui ne (PLAQUENIL) 200 mg tablet Take 1 tablet (200 mg total) by mouth daily Active tirzepatide, weight loss, (Zepbound) 15 mg/0.5 mL pen injector Inject 0.5 mL (15 mg total) under the skin every 7 days Active mycophenolate mofetil (CELLCEPT) 500 mg tablet Take 1 tablet (500 mg total) by mouth 2 (two) times a day Active NIFEdipine (NIFEdipine CC) 60 mg 24 hr tablet Take 1 tablet (60 mg total) by mouth daily Active Active Problems Problem Noted Date Diagnosed Date Malignant neoplasm of female breast 04/09/2024 Mass overlapping multiple quadrants of left yanna st 04/09/2024 Oligohydramnios, antepartum 07/06/2012 Overview (06/10/2016): Oligohydramnios, antepartum Systemic sclerosis 01/18/2012 Overview (06/09/2016): 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 Immunizations Immunization Administration Dates Next Due Pneumococcal Conjugate Pcv20 07/20/2022 Social History Tobacco Use Types Packs/Day Years Used Date Smoking Tobacco: Never Tobacco Cessation:Counseling Given: Not Answered Alcohol Use Standard Drinks/Week Comments No 0 (1 standard drink = 0.6 oz pur e alcohol) Comments Unknown Sex and Gender Information Value Date Recorded Sex Assigned at Not on file Legal Sex Female 2:38 AM GRANITE POLISHER Gender Identity Not on file Sexual Orientation Not on file Last Filed Vital Signs Vital Sign Reading Time Taken Comments Blood Pressure 136/72 09/05/2012 11:55 AM CDT Pulse - - Temperature - - Respiratory Rate - - Oxygen Saturation - - Inhaled Oxygen Concentration - - Weight 87.5 kg (192 lb 12.8 oz) 04/09/2024 8:31 AM GRANITE POLISHER Height 165.1 cm (5' 5) 04/09/2024 8:31 AM GRANITE POLISHER Body Mass Index 32.08 04/09/2024 8:31 AM GRANITE POLISHER Plan of Treatment Not on file Insurance [facility] Address: [facility] [id number] [facility] Address: [address] [place] [address] [facility] Care Teams Php Programmer Relationship Specialty Start Date End Date Ame Farias NP [address] [place] [address] PCP - General Obstetrics and Gynecology 02/29/24
--- OUTSIDE RECORDS SUMMARY | 2024-09-09 16:25 | XMS_ITS | Encounter Summary ---
Author Organization [facility] Address [address] [place] [address] Care Team Providers Care Corrugator Name Role Phone Mickey Gillespie PA-C Primary Care Provide r Rosalio Rankin MD Unavailable [phone] Reason for Visit * Reason Onset Date Comments Order 09/09/2024 Encounter Details Date Type Department Care Team (Late st Contact Info) Description 09/09/2024 Telephone [facility] - Rheumatology [address] [place] [address], [facility] [place] [address] Kristen Mcgarry MD [address] [place] [address] [place] [address] Order Social History Tobacco Use Types Packs/Day Years Used Date Smoking Tobacco: Never Smokeless Tobacco: Never Alcohol Use Standard Drinks/Week Comments Yes 0 (1 standard drink = 0.6 oz pur e alcohol) social PHQ-2 Answer Date Recorded Patient Health Questionnaire-2 Score 0 08/28/2024 Comments No Sex and Gender Information Value Date Recorded Sex Assigned at Not on file Legal Sex Female 9:53 AM MACHINE ADJUSTER LEADER CASE TRIM Gender Identity Not on file Sexual Orientation Not on file documented as of this encounter Functional Status * Is person deaf or have serious hearing difficulty? Answer Date of Assessment Author No 06/07/2023 11:55 AM CDCarmella Valdes RN * Is person blind or have serious difficulty seeing? Answer Date of Assessment Author No 06/07/2023 11:55 AM Carmella Grewal RN * Does person have serious difficulty walking/climbing stairs? Answer Date of Assessment Author No 06/07/2023 11:55 AM Carmella Grewal RN * Does person have difficulty dressing/bathing? Answer Date of Assessment Author No 06/07/2023 11:55 AM STUARTT Carmella Rodriguez RN * Does person have difficulty doing errands alone? Answer Date of Assessment Author No 06/07/2023 11:55 AM Carmella Grewal RN documented as of this encounter Mental Status * Does person have difficulty concentrating/remembering/making decisions? Answer Entry Date Author No 06/07/2023 11:55 AM Carmella Grewal RN documented in this encounter Miscellaneous Notes * Telephone Encounter - Brionna Morris - 09/09/2024 10:34 AM CDT Pt needs her order for a CT faxed to [phone] Pt has apt today to get done so order needs to be faxed over today Pt call back # [phone] documented in this encounter Plan of Treatment Upcoming Encounters Date Type Department Care Team (Late st Contact Info) Description 11/08/2024 9:00 AM CDT Office Visit [facility] - Pulmonology [address] [place] [phone] Rolando Kathleen MD [address] [place] [address] 2L DIV OF PULMONARY/[place] [address] 02/11/2025 8:30 AM MACHINE ADJUSTER LEADER CASE TRIM Office Visit [facility] - Pulmonology [address] [place] [phone] Rolando Kathleen MD [address] [place] [address] 2L DIV OF PULMONARY/[place] [phone] 02/11/2025 3:00 PM MACHINE ADJUSTER LEADER CASE TRIM Office Visit [facility] - Rheumatology [address] [place] [address], [place] [address] Kristen Mcgarry MD [address] [place] [address] 2L [place] [address] documented as of this encounter Visit Diagnoses Not on filedocumented in this encounter Care Teams Corrugator Relationship Specialty Start Date End Date Mickey Gillespie PA-C [address] [place], [place] [phone] PCP - General Physician Flooring Professional 09/20/21 Rosalio Rankin MD [address] [facility] 200 [place] [address] Cardiology 09/20/21 documented as of this encounter
--- OUTSIDE RECORDS SUMMARY | 2024-09-09 16:25 | XMS_ITS | Encounter Summary ---
Author Organization [facility] Healthcare Address [address] [place] [address] Care Team Providers Care Concession Attendant Name Role Phone Unavailable Primary Care Provider Unavailabl e Reason for Visit * Diagnostic Imaging (Routine) - Pending Review Specialty Diagnoses / Procedures Referred By Sharif savage Referred To Contact Procedures Breast Imaging Screening Outside Reference Mindi De Dios NP Phone: tel: fax: Referral ID Status Reason Start Date Expiration Date V isits Requested Visits Authorized [id number] Pending Review 03/19/2024 04/18/2025 1 1 Encounter Details Date Type Department Care Team (Late st Contact Info) Description 02/04/2020 Hospital Encounter [facility] [address] [place] [id number] Social History Tobacco Use Types Packs/Day Years Used Date Smoking Tobacco: Never Alcohol Use Standard Drinks/Week Comments No 0 (1 standard drink = 0.6 oz pur e alcohol) Comments Unknown Sex and Gender Information Value Date Recorded Sex Assigned at Not on file Legal Sex Female 2:38 AM ENGRAVER SET UP OPERATOR Gender Identity Not on file Sexual Orientation Not on file documented as of this encounter Plan of Treatment Not on file documented as of this encounter Procedures Procedure Name Priority Date/Time Associated Diagnosis Comments BREAST IMAGING MG SCREENING OUTSIDE REFERENCE Routine 02/04/2020 12:00 AM ENGRAVER SET UP OPERATOR documented in this encounter Results * Breast Imaging Screening Outside Reference (02/04/2020 12:00 AM ENGRAVER SET UP OPERATOR) Impressions RAD_MAMMO[facility] - 03/19/2024 7:56 PM ENGRAVER SET UP OPERATOR These images are for Reference purposes only and have not been reviewed by [facility] Radiology. There will be no report generated by a [facility] Radiologist. Narrative [facility]_M[facility]MO[facility] - 03/19/2024 7:56 PM ENGRAVER SET UP OPERATOR EXAMINATION: Images For Reference Purposes Only us Mindi De Dios NP IMG MAMMO PROCEDURES Final Res ult [facility] documented in this encounter Visit Diagnoses Not on filedocumented in this encounter
--- OUTSIDE RECORDS SUMMARY | 2024-09-09 16:25 | XMS_ITS | Data Portability ---
Author Organization 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 Patient will come back in a year unless there are new symptoms. [email or web address] Not available 12/15/2022 16:51:49 02/13/2024 02/13/2024 Annual gynecological exam performed. Patient will come back in a year unless there are new symptoms. [email or web address] Not available 02/13/2024 14:47:54 Plan of Treatment Reminders Order Date Submit Date Provider Last Modified By Organization Details Last Modified Time Details Appointments None recorded. Lab None recorded. Referral None recorded. Procedures None recorded. Surgeries None recorded. Imaging US, breast, unilateral - left breast lump [email or web address] [place] [address] [facility], [address], [address], [place], [address], 15:44:46 MAMMO, diagnostic, digital, bilateral 2023 024 [facility], [address], [place], [address], 4 15:03:02 Medication Orders Mounjaro 15 mg/0.5 mL subcutaneou s pen injector 2023 024 [email or web address] 1 [facility] [address], [address], [place], [address], 4 14:48:49 Mounjaro 15 mg/0.5 mL subcutaneou s pen injector 2022 023 [email or web address] 1 [facility] [address]25, [address], [place], [address], 4 14:48:49 Patient TargetsNo targets recorded. Patient InstructionsNo instructions recorded. Reason for Referral None Reported. Results Created Date Observation Date Name Description Value Unit Range Abnormal Flag Note LastModifiedBy Organization Detail LastModifiedTime 01/03/2001/02/2023 SURGI [facility]EWEL[facility] PATHO LOGY surgical pathology SEE RESULT S BELOW CASE REPOR T: Surgi jewels Patho logy Repor t Case: [id number] Autho malu fisher Provi emily: Crystal Orozco MD Colle cted: 01/02 1702 Order ing Locat ion: [place] Patho logy Recei timothy: 01/03 0119 Patho logis t: Lanre Da Silva MD Speci men: Vagin al Cuff, Vagin al cuff lesio n FINAL DIAGN OSIS: Vagin a, cuff lesio n, biops y: -Poly poid granu latio n tissu eTsering adkins by Lanre Da Silva MD on 01/03 at 2:53 PM ----- ----- ----- ----- ----- ----- ----- ----- ----- ----- ----- ----- ----- ----- ----- ----- ----- ---- CLINI JEWELS INFOR MATBETTIE N: n84.2 MICRO SCOPI C DESCR IPTIO N: A micro scopi c exami natio n was perfo rmed. GROSS DESCR IPTIO N: A. Vagin al Cuff. The speci men is label ed with the patie nt's name, demog jenelle cs and belem n of vagin al cuff . Recei timothy in forma vignesh is a 2.0 x 0.9 x 0.3 [address] [place] yukiu e. It is submi tted all in casse tte A1. Gross ed by Winter Lambert on Not Available [facility] (Lab) [address], [place], [address], 01/03/2023 15:56:24 02/29/20 24 02/29/2024 MAMMO , diagn ostic , digit al, bilat eral No observ ation record ed. [email or web address] [place] [address], [id number], 02/29/2024 15:44:26 04/11/19 25 02/29/2024 US, breas t, unila teral No observ ation record ed. [address] [facility], [place], [address], 04/11/2024 16:17:24 04/11/19 25 02/29/2024 MAMMO , diagn ostic , digit al, bilat eral No observ ation record ed. [address] [place] [address], [id number], 04/11/2024 16:17:24 Result Notes None recorded. Problems Name Problem SNOMED Code Status Onset Date Resolution Date Notes Provider Name and Address Organization Details Recorded Time Speciali zed medical examinat ion Completed 201302/01/2021 Other specified chlamydia l diseases; Recorded Elsewhere : No Locati on: [facility] So urce: EHR Chron ic: N Practic e ID: 0001 Bill able Time: 04:30:00 PM Sherri Lugo [place], [place] - [facility] 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 17:42:34 Screenin g for malignan t neoplasm of cervix Completed 201702/01/2021 Screening for malignant neoplasms of the cervix;Re corded Elsewhere : No Locati on: [facility] So urce: EHR Chron ic: N Practic e ID: 0001 Bill able Time: 05:00:00 PM Sherri Lugo [facility] 17:42:28 Syphilis test finding [id number] Completed 201702/01/2021 Encntr screen for infection s w sexl mode of transmiss ;Recorded Elsewhere : No Locati on: [facility] So urce: EHR Chron ic: N Practic e ID: 0001 Bill able Time: 05:00:00 PM Sherri [facility] 17:42:38 Finding of body mass index 581376956 Completed 201502/01/2021 Body mass index (BMI) 40.0-44.9 , adult;Rec orded Elsewhere : No Locati on: [facility] So urce: EHR Chron ic: N Practic e ID: 0001 Bill able Time: 05:15:00 PM Sherri Lugo [facility] 17:42:05 Pain 12105729 Completed 201502/01/2021 Pain;Juan José rded Elsewhere : No Locati on: [facility] So urce: EHR Chron ic: N Practic e ID: 0001 Bill able Time: 05:15:00 PM Sherri Lugo [facility] 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 17:42:32 Screenin g for malignan t neoplasm of rectum Completed 201602/01/2021 Encounter for screening for malignant neoplasm of rectum;Re corded Elsewhere : No Locati on: [facility] So urce: EHR Chron ic: N Practic e ID: 0001 Bill able Time: 09:30:00 AM Sherri willingham [facility] 17:42:30 Infectio n screenin g Completed 201702/01/2021 Encounter for screening for oth infec/par astc diseases; Recorded Elsewhere : No Locati on: [facility] So urce: EHR Chron ic: N Practic e ID: 0001 Bill able Time: 05:00:00 PM Sherri willingham [facility] 1 17:42:07 Adult health examinat ion Completed 201302/01/2021 ROUTINE MEDICAL EXAM;Juan José rded Elsewhere : No Locati on: [facility] So urce: EHR Chron ic: N Practic e ID: 0001 Bill able Time: 04:30:00 PM Sherri willingham [facility] 1 17:42:03 Venereal disease screenin g Completed 201302/01/2021 Screening examinati on for venereal disease;R ecorded Elsewhere : No Locati on: [facility] So urce: EHR Chron ic: N Practic e ID: 0001 Bill able Time: 04:30:00 PM Sherri willingham [facility] 1 17:42:39 Problem Notes None recorded. Procedures Surgical History Date Name Laterality Status Provider Name and Address Organization Details Recorded Time 02/13/20 24 Date of [facility] 02/13/2024 14:54:03 01/03/20 23 vaginal biopsy [facility] 02/13/2024 14:55:24 08/05/19 23 Date of Last Colonoscopy completed Crystal Patel [facility] 06/01/2023 17:15:12 12/08/19 22 TOTAL HYSTERECTOMY, LAPAROSCOPIC, WITH BILATERAL SALPINGECTOMY (SURG) completed Keketarah Hager [facility] 12/08/2021 11:53:30 09/28/19 22 Endometrial Biopsy completed Matti Orozco MD [address], [place], [address], [facility] 09/27/2021 23:32:12 09/28/19 22 endometrial biopsy completed [facility] 02/13/2024 14:54:52 02/04/20 20 Date of Last Mammogram completed [facility] 02/01/2021 17:43:26 03/06/19 14 extraction of wisdom tooth completed [facility] 02/13/2024 14:55:41 07/21/19 13 Caesarean Section completed [facility] 08/16/2022 14:27:59 03/06/19 02 excision of benign tumor of breast completed [facility] 02/01/2021 17:44:52 03/06/18 89 Tonsillectomy completed [facility] 02/13/2024 14:56:09 Imaging Results None recorded. Procedure Notes None recorded. Medical Equipment None Reported. Allergies Allergen ID Allergen Name Allergen Category Reaction Reaction Severity Criticality Documentation Date Start Date Code Code System Note Provider Name and Address Organization Details Recorded Time 43828 shellfish derived food,medi cation Not available Not available Not available 02/21/2020 12060 UNK React ion: (julisa re);S everi ty: esdras e; Comme nt: Locat ion: Crystal mauricio [facility]; Not Available [facility] 0 14:17:57 Medications Name Sig Start Date Stop Date Status Note LastModified by Organization Details LastModified Time prednison e 10 mg tablet TAKE 3 TABLETS BY MOUTH ONCE DAILY FOR 3 DAYS, THEN TAKE 2 TABLETS ONCE DAILY FOR 3 DAYS, THEN TAKE 1 TABLET ONCE DAILY FOR 3 DAYS 12/15 completed Not Available Not Available Not Available azithromy iker 250 mg tablet TAKE 2 TABLETS BY MOUTH ON DAY 1, AND THEN TAKE 1 TABLET BY MOUTH ONCE A DAY ON DAY 2 THROUGH DAY 5 05/31 completed Not Available Not Available Not Available hydrocodo ne 5 mg-acetam inophen 325 mg tablet TAKE 1 TABLET BY MOUTH EVERY 4 HOURS NEEDED FOR PAIN 01/04 completed Not Available Not Available Not Available azathiopr ine 50 mg tablet take 1 tablet by oral route every day 08/16 completed Not Available Not Available Not Available acetamino phen 300 mg-codein e 30 mg tablet 12/15 completed Not Available Not Available Not Available ciproflox acin 500 mg tablet TAKE 1 TABLET BY MOUTH ONCE DAILY 12/15 completed Not Available Not Available Not Available ondansetr on 8 mg disintegr ating tablet DISSOLVE 1 TABLET IN MOUTH TWICE DAILY 05/31 completed Not Available Not Available Not Available mycopheno late mofetil 500 mg tablet active Not Available Not Available Not Available oxycodone -acetamin ophen 5 mg-325 mg tablet 01/05 completed Not Available Not Available Not Available DOK 100 mg capsule 02/01 completed Not Available Not Available Not Available nifedipin e ER 60 mg tablet,ex tended release 24 hr active Not Available Not Available Not Available nifedipin e 10 mg capsule take 2 Capsule by oral route every 6 hours 02/01 completed Prescrib ed Elsewher e: Yes Loca tion: Chloe day [facility] odify By: [email or web address] Lyssa kidd DateTime : 10/06/19 16 05:15:00 PM Not Available Not Available Not Available furosemid e 20 mg tablet 12/15 completed Not Available Not Available Not Available ergocalci ferol (vitamin D2) 1,250 mcg (50,000 unit) capsule Take 1 capsule every week by oral route. 12/15 completed Not Available Not Available Not Available hydroxych loroquine 200 mg tablet take 1 tablet by oral route every day active Not Available Not Available No t Available amoxicill in 875 mg-potass ium clavulana te 125 mg tablet TAKE 1 TABLET BY MOUTH TWICE DAILY 01/04 completed Not Available Not Available Not Available Lasix 12/15 completed Not Available Not Available Not Available CellCept 12/15 completed Not Available Not Available Not Available multivita min 12/15 completed Not Available Not Available Not Available hydrocodo ne 5 mg-homatr opine 1.5 mg/5 mL syringe (FOR ORAL USE ONLY) take 5 millilit er by oral route every 4 - 6 hours as needed 09/29 completed Prescrib ed Elsewher e: Yes Loca tion: [facility] odify By: [email or web address] trick En counter DateTime : 09/24/19 14 04:30:00 PM Not Available Not Available Not Available Mounjaro 7.5 mg/0.5 mL subcutane ous pen injector INJECT 7.5 MG SUBCUTAN EOUSLY EVERY WEEK 12/15 completed Not Available Not Available Not Available Mounjaro 5 mg/0.5 mL subcutane ous pen injector Inject 5 mg every week by subcutan eous route. 12/15 completed Not Available Not Available Not Available Mounjaro 15 mg/0.5 mL subcutane ous pen injector Inject by subcutan eous route for 28 days. 2024 active Not Available Not Available Not Avai lable Mounjaro 10 mg/0.5 mL subcutane ous pen injector INJECT 1 PEN ONCE A WEEK 12/15 completed Not Available Not Available Not Available Mounjaro 2.5 mg/0.5 mL subcutane ous pen injector INJECT 2.5 MG SUBCUTAN EOUSLY ONCE WEEKLY 12/15 completed Not Available Not Available Not Available Zepbound 15 mg/0.5 mL subcutane ous pen injector 2024 active Not Available Not Available Not Avai lable Vitals Date Recorded Body height Body mass index (BMI) Body weight Systolic And Diastolic Provider Name and Address Organization Details Last Updated DateTime 06/01/2023 165.1 cm 34.3 kg/m2 00691.03 g 95/65 mm[Hg] Crystal Jorge [facility] 06/01/2023 17:11:56 Date Recorded Body height Body mass index (BMI) Body weight Systolic And Diastolic Provider Name and Address Organization Details Last Updated DateTime 12/15/2022 165.1 cm 36.8 kg/m2 789709.91 g 120/65 mm[Hg] Rae Tapia [facility] 12/15/2022 16:52:05 Date Recorded Body height Body mass index (BMI) Body weight Systolic And Diastolic Provider Name and Address Organization Details Last Updated DateTime 01/02/2023 165.1 cm 36.6 kg/m2 48384.32 g 134/76 mm[Hg] [facility] 01/02/2023 16:45:42 Date Recorded Body height Body mass index (BMI) Body weight Systolic And Diastolic Provider Name and Address Organization Details Last Updated DateTime 01/24/2023 165.1 cm 35.1 kg/m2 14860.99 g 116/65 mm[Hg] [facility] 01/24/2023 09:56:58 Date Recorded Body height Body mass index (BMI) Body weight Systolic And Diastolic Provider Name and Address Organization Details Last Updated DateTime 02/13/2024 165.1 cm 32.6 kg/m2 05819.1 g 124/79 mm[Hg] Brianna Jacobson [facility] 02/13/2024 14:48:25 Social History Question Answer Notes LastModified by Organizat ion Details LastModified Time Tobacco Smoking Status Never [facility] 01/24/2023 09:41:40 Do You Have An Advance Directive? No willie Information n ot available 02/01/2021 Are You Blind Or Do You Have Difficulty Seeing? No Information n ot available 02/01/2021 What Is Your Level Of Caffeine Consumption? Occasional Information not available 02/01/2021 In The 14 Days Before Symptom Onset, Have You Had Close Contact With A Laboratory-confirm ed COVID-19 While That Case Was Ill? No Information n ot available 02/01/2021 In The 14 Days Before Symptom Onset, Have You Had Close Contact With A Person Who Is Under Investigation For COVID-19 While That Person Was Ill? No Information not available 02/01/2021 Have You Been To An Area Known To Be High Risk For COVID-19? No Information not available 02/01/2021 Are You Deaf Or Do You Have Serious Difficulty Hearing? No Information not available 02/01/2021 What Is The Highest Grade Or Level Of School You Have Completed Or The Highest Degree You Have Received? [id number] Information not available 02/01/2021 Are There Any Guns Present In Your Home? No Information not available 02/01/2021 Do You Use Protection During Sex? No Information not available 02/01/2021 Do You Use Your Seat Belt Or Car Seat Routinely? Yes Information not available 02/01/2021 Do You Have Smoke And Carbon Monoxide Detectors In Your Home? Yes Information not available 02/01/2021 How Much Tobacco Do You Smoke? No Information not available 02/01/2021 Do You Use Sunscreen Routinely? No Information not available 02/01/2021 Have You Used IV Drugs? No Information not available 02/01/2021 Do You Have Difficulty Walking Or Climbing Stairs? No [email or web address] Information not available 02/13/2024 Sex: Unknown Functional Status Question Answer Note LastModified by Organizat ion Details LastModified Time Do you use any illicit or recreational drugs? No Information not available 02/01/2021 What is your level of alcohol consumption? Occasional Information not available 02/01/2021 Are you able to walk? YESWOREST Information not available 02/01/2021 Are you able to care for yourself? Yes Information n ot available 01/24/2023 Do you have difficulty dressing or bathing? No [email or web address] Information not available 02/13/2024 What is your exercise level? Occasional Information not available 02/01/2021 Mental Status Question Answer Note LastModified by Organization D etails LastModified Time Do you feel stressed (tense, restless, nervous, or anxious, or unable to sleep at night)? [id number] Information not available 02/01/2021 Family History Relationship Description Onset Age of this Age Resolved Age Notes LastModified by Organization Details LastModified Time Paternal Grandmother Malignant tumor of breast [email or web address] Not available 02/12 14:48:35 Medical History Condition Response Allergies (Food, seasonal, environmental ) Y Other N Breast Cancer N Drug/Latex Allergies/Reactions Y Blood Transfusion N Dermatologic Disorders N Lung Disease N Defects or Inherited Disease N Breast Problem Y Gestational Diabetes N Hematologic disorders N Anesthesia Complications N History of STI N Deep Vein Thrombosis N Polycystic ovary syndrome N Anxiety Disorder N Autoimmune disease Y Arthritis N Infertility N Polyps N Acid Reflux (GERD) N History of abnormal pap N Cancer N Stroke N Varicosities N Neurologic/Epilepsy N Endometriosis N High Cholesterol N Headaches N Fibromyalgia N Kidney Disease N Heart Problems N Kidney or Bladder Problems N Thyroid Problems N GI Problems N Eating Disorder N Anemia N Art (IVF or FET) N Psychiatric Illness N Ovarian Cancer N Diabetes N Pulmonary (TB, Asthma) N Hepatitis/Liver Disease N No Past Medical History N Eczema N Urinary Tract Infection N Abuse/Domestic Violence N Asthma N Trauma/Violence N Depression/ depression N Heart Disease N Pre-Eclampsia N Hypertension Y Osteoporosis N Thrombophilias N Gynecological History Statement/Question Response Date of Last Mammogram 02/04/2020 Date of LMP 11/29/2021 On BCP's at Conception? N N Was last menstrual period normal N STIs/STDs N HPV Vaccine N Duration of Flow (days) 8 Current Control Method Hysterectom y Age at First Child 37 Date of Last Colonoscopy 08/04/2022 Frequency of Cycle (Q days) 10 Sexually Active? Y Menses Monthly N Date of DEXA bone scan Age of first menstrual cycle 13 Date of Last Pap Smear 02/13/2024 Sexual Problems? N Desired Control Method Sterilizati on LMP Definite N Obstetrics History GPAL:G 2 P 1 0 1 1 Type Value Full Term 1 Spontaneous 1 Living 1 Total 2 Past Encounters Encounter ID Performer Location Encounter Start Date Encounter Closed Date Diagnosis/Indication Diagnosis SNOMED-CT Code Diagnosis ICD10 Code Diagnosis Note [id number] Matti Orozco MD [place] [address] [address] 01/06/2020 17:12:34 01/06/2020 18:15:17 Gynecologic examination 06342427 Z01.419 This patient is here for her annual exam. A thorough history was taken. A physical exam was performed. Age appropriat e routine health screening was ordered, performed, and discussed. Recommende d testing was ordered. She was asked to follow up in one year. She will be informed of any test results. Mammogram - [order ] Cholestero l - [ ordered] Pap - today [id number] Matti Orozco MD [place] [address] [address] 02/01/2021 17:19:59 02/01/2021 18:11:47 Gynecologic examination 68242593 Z01.419 This patient is here for her annual exam. A thorough history was taken. A physical exam was performed. Age appropriat e routine health screening was ordered, performed, and discussed. Recommende d testing was ordered. She was asked to follow up in one year. She will be informed of any test results. Mammogram - [order ] Cholestero l - [ ordered] Pap - today [id number] Matti Orozco MD [place] [address] [address] 09/16/2021 09:28:40 09/16/2021 10:07:46 Abnormal uterine bleeding 3710067503 9100 N93.9 Menorrhagia 652461497 N9 2.0 Accidents, getting blood on her bedding and clothing. Dysmenorrhea 454244439 N 94.6 [id number] Matti Orozco MD [place] [address] [address] 09/20/2021 16:52:25 09/20/2021 17:48:30 Abnormal uterine bleeding 7276395158 9100 N93.9 N94.6 [id number] Matti Orozco MD [place] [address],[place] [address] 09/27/2021 17:11:17 09/28/2021 15:41:45 Uterine leiomyoma 54506467 D25.9 Menorrhagia 667164714 N9 2.0 This patient is a 46-year-ol d female with severe menorrhagi a and large uterine fibroids. Her bleeding is profound. She has accidents. She gets blood on her bedding clothing. It affects her quality of life in her [facility] ip. We discussed treatment options today. We discussed all medical and surgical treatment options in detail. the patient's medical condition limits her medical Lisa's. She would like to move forward with definitive surgical treatment. We agreed to perform endometria l biopsy today. I informed her about the procedure. I informed her in detail about the laparoscop ic surgery. we will meet prior to the surgery for the informed consent process. [id number] Matti Orozco MD [place] [address],[place] [address] 12/01/2021 17:10:41 12/01/2021 18:06:56 Menorrhagia 311798401 N92.0 Uterine leiomyoma 961677 05 D25.9 this patient is a 46-year-ol d female with a fibroid uterus and severe menorrhagi a. We have agreed to perform total laparoscop ic hysterecto my and bilateral salpingect estefani. She understand s the risks, benefits, and alternativ es. She has completed the informed consent process and is ready to proceed. [id number] Matti Orozco MD [place] [address],[place] [address] 12/10/2021 10:32:23 12/10/2021 10:33:37 [id number] Matti Orozco MD [place] [address],[place] [address] 12/14/2021 11:28:58 12/15/2021 16:06:17 Family history of diabetes mellitus 982492043 Z83.3 Postoperative care 13676 9287 Z48.89 This patient is a 46-year-ol d female presents for postop follow-up. She is 1 week postop from a total laparoscop ic hysterecto my and bilateral salpingect estefani. She has no complaints . Her incisions are clean dry and intact she is recovering normally. She will follow-up as needed [id number] Matti Orozco MD [place] [address] [address] 01/04/2022 14:48:24 01/05/2022 18:48:32 Obesity 591526073 E66.9 This patient is a 46-year-ol d female who presents for weight management . We took a very thorough history. We talked about some of her goals. Talked about some of her challenges . We talked about some of her previous efforts in weight loss and her activity level. We talked about limitation s for activity. Talked about energy consumptio n energy expenditur e. She was given recommenda tions and some of these areas. We talked about the importance of resistance training and cardiovasc ular exercise. We talked about her medical history in its relationsh ip to excess body weight. We talked about treatment options. We talked about the evaluation that is appropriat e for beginning weight management . We talked about her diet and our dietitian. We agreed to a dietitian consult. We agreed to a sleep study. We agreed to metabolic testing. We performed body compositio n testing today. We reviewed those results and talked about their significan ce. We spent over 1 hour together. More than 50% was counseling . We agreed to come together in 2 weeks and initiate treatment. her labs were done with primary. She is going to see a dietitian. She has done a sleep study. She does not have obstructiv e sleep apnea. we discussed medication . We agreed to start the new G LP 1 agonist. She was given precaution s on the medication , side effects, adverse reactions, instructio ns. She return in 1 month. [id number] Matti Orozco MD [facility] [address] [address] 02/01/2022 15:14:48 02/01/2022 16:18:30 Obesity [id number] E66.9 This patient is a 46-year-ol d female who presents for 2nd visit. She started the new G LP 1 agonist at last visit. She started with 2.5 mg. She has not noticed much in terms of affect. She has noticed some constipati on with meds. she is exercising . Her exercise sounds limited though. We talked about making that more active. She has not yet seen the dietitian. She will be scheduled to see the dietitian. We spent more than 20 minutes face-to-fa ce. More than 50% was counseling . We spent more than 20 minutes face-to-fa ce. More than 50% was counseling . [id number] Matti Orozco MD [place] [address],[place] [address] 04/12/2022 16:43:48 04/13/2022 15:13:06 Obesity [id number] E66.9 This patient is a 46-year-ol d female who presents for 2nd visit. She started the new G LP 1 agonist at last visit. She started with 2.5 mg And then moved on to 5 mg.. She advanced She has lost 8 lb in the last month and a half to 2 months. She had an accident where she fell an 8 hotel room bath tub. She had her head was unconsciou s. So, Her exercise sounds limited though. she is having CT of her neck and spine. We talked about making that more active. She will do what she can, when she can.She has seen the dietitian. She will be scheduled to see the dietitian. We spent more than 20 minutes face-to-fa ce. More than 50% was counseling . We spent more than 20 minutes face-to-fa ce. More than 50% was counseling . She will continue on 5 mg of months She feels like she lost a month [id number] Matti Orozco MD [place] [address],[place] [address] 05/10/2022 14:44:33 05/10/2022 18:24:30 Obesity [id number] E66.9 this patient is a 46-year-ol d female presents for weight management follow-up. She continues to lose weight. She is taking the new GLP 1 agonist. She is exercising . She is managing her calorie intake very well. She is getting significan t results. She would like to try the next highest dose. We spent over 20 minutes face-to-fa ce. More than 50% was counseling . Talked about her experience s with the medication . Talked about lifestyle changes. [id number] Matti Orozco MD [place] [address],[place] [address] 06/07/2022 15:17:56 06/07/2022 16:21:42 Obesity [id number] E66.9 This patient is a 46-year-ol d female presents for weight management follow-up. She continues to lose weight. She is taking the new GLP 1 agonist. She is exercising . She is managing her calorie intake very well. She is getting significan t results. She would like to try the next highest dose. We spent over 20 minutes face-to-fa ce. More than 50% was counseling . Talked about her experience s with the medication . Talked about lifestyle changes. she will continue on same dose of the new G LP 1 agonist. We are wondering if she is going to have coverage. We talked about alternativ e to that medication . [id number] Matti Orozco MD [place] [address],[place] [address] 07/12/2022 10:19:01 07/12/2022 11:13:00 Obesity [id number] E66.9 This patient is a 46-year-ol d female presents for weight management follow-up. She continues to lose weight. She is taking the new GLP 1 agonist. She is exercising . She is managing her calorie intake very well. She is getting significan t results. She would like to try the next highest dose. We spent over 20 minutes face-to-fa ce. More than 50% was counseling . Talked about her experience s with the medication . Talked about lifestyle changes. she will continue on same dose of the new G LP 1 agonist. We are wondering if she is going to have coverage. We talked about alternativ e to that medication . she is going to keep her dose at 7.5 mg [id number] Matti Orozco MD [facility] [address],[place] [address] 08/16/2022 14:18:35 08/16/2022 15:16:51 Obesity [id number] E66.9 47-year-ol d female who presents for follow-up on weight management . She has had a lot of social events the past month. She has had graduation s, days, travel to [place]. We talked about physical activity. We talked about diet. We talked about medication s. We spent more than 20 minutes face-to-fa ce. More than 50% was counseling . We agreed to increase much RO dose to 10 mg. She will follow-up in 1 month. [id number] Matti Orozco MD [place] [address],[place] [address] 09/14/2022 16:57:24 09/15/2022 15:10:51 Nausea and vomiting [id number] R11.2 Obesity [id number] E66.9 47-year-ol d female who presents for follow-up on weight management . She has had a lot of social events the past few month. She has had graduation s, days, travel to [place]. We talked about physical activity. We talked about diet. We talked about medication s. We spent more than 20 minutes face-to-fa ce. More than 50% was counseling . Patient is going continue mg of the new G LP 1 agonist. [id number] Matti Orozco MD [place] [address],[place] [address] 10/11/2022 15:14:50 10/11/2022 17:06:45 Obesity [id number] E66.9 47-year-ol d female who presents for follow-up on weight management . Patient is finding her medication s expensive now. We discussed ways of breaking down a higher dose injector into multiple small doses. We agreed to do that and she would return in 2 weeks for that. Higher dose injector was prescribed . She is Active. Her social life is chilled so she is able to be more focused on her lifestyle changes. we spent 20 minutes face-to-fa ce. More than 50% was counseling [id number] Matti Orozco MD [facility] [address] [address] 11/03/2022 17:52:23 11/04/2022 09:43:52 Obesity [id number] E66.9 47-year-ol d female who presents for follow-up on weight management . Patient is finding her medication s expensive now. We discussed ways of breaking down a higher dose injector into multiple small doses. We agreed to do that and she would return in 2 weeks for that. Higher dose injector was prescribed . she picked up the higher dose injector, 15 mg, and we reviewed the dosing today. We had talked about drawing up the medication after putting in a sterile cup and and 2 doses. She is Active. Her social life is chilled so she is able to be more focused on her lifestyle changes. we spent 20 minutes face-to-fa ce. More than 50% was counseling [id number] YUDI Giraldo [place] [address] [address] 12/15/2022 16:41:03 12/15/2022 18:01:46 Gynecologic examination [id number] Z01.419 WWEhx of hyst, BS for fibroids/A UBno hx of abnormal paps prior to hystpaps d/c'dmammo gram order given - encouraged to scheduleUT D with cologuard - 08/2022UTD with PCP for routine labsLesion /polyp on vaginal cuff, recommende d MD consult for exam/possi ble removal Suggested Calcium with Vitamin D 1200-1500m g daily. Patient advised to get an annual flu shot in the fall and she could obtain at [facility] or [facility] care clinic. Also to obtain TDap vaccinatio n if you have not had one in the last 10 years. Recommend yearly mammograms . Encouraged monthly self breast exams. Encourage safe sexual practices, to use condoms and limit partners if not already in a monogamous relationsh ip. Engage in daily exercise of low impact aerobic exercise 45-60 minutes 4-5 times weekly. Avoid tobacco and illicit drugs as well as using moderation with alcohol intake less than 1-2 8 oz beverages daily. This lifestyle behavior pattern will lead to less health conditions and longer life span. If BMI greater than 25 weight watchers or dietary consult advised. All questions have been answered. Patient appears to understand informatio n, but if you have any questions please call or respond to this email. Vaginal lesion [id number] N94.89 [id number] Matti Orozco MD [facility] [address],[place] [address] 01/02/2023 16:20:49 01/03/2023 09:20:50 Polyp of vaginal wall [id number] N84.2 47-year-ol d female who presents for vaginal polyp. She was examined. There was a polyp at the vaginal cuff. It is on a stalk. We agreed to removed. It was hyperemic and vascular. Packing forceps was used to crush the stalk. The stalk was then transected . It bled mildly. Silver nitrate was used to make hemostatic . She tolerated it well. We will follow-up on the pathology results. Stalk emanating from the vaginal Wall, proximal and on the left side. [id number] Matti Orozco MD [place] [address],[place] [address] 01/24/2023 09:41:32 01/24/2023 10:35:33 Obesity [id number] E66.9 47-year-ol d female who presents for follow-up on weight management . Patient had marked improvemen t weight loss over the last 2 months. patient is dividing dose is up the medication after putting in a sterile cup and and 2 doses. she is making a 15 mg syringe of the new GLP 1 agonist last almost 3 months. She is Active. She is going to the gym 3 times a week. Her social life is chilled so she is able to be more focused on her lifestyle changes. we spent 20 minutes face-to-fa ce. More than 50% was counseling [id number] Matti Orozco MD [place] [address],[place] [address] 06/01/2023 16:58:39 06/01/2023 17:55:47 Obesity [id number] E66.9 47-year-ol d female who presents for follow-up on weight management . Patient had marked improvemen t weight loss over the last 2 months. patient is dividing dose is up the medication after putting in a sterile cup and and 2 doses. she is making a 15 mg syringe of the new GLP 1 agonist last almost 3 months. She is Active. She is going to the gym 3 times a week. Her social life is chilled so she is able to be more focused on her lifestyle changes. we spent 20 minutes face-to-fa ce. More than 50% was counseling [id number] YUDI Giraldo [place] [address] [address] 02/13/2024 13:57:26 02/13/2024 15:10:56 Gynecologic examination [id number] Z01.419 WWEhx of hyst, BS for fibroids/A UBno hx of abnormal paps prior to hystpaps d/c'dmammo gram order given (diagnosti c with left u/s) - encouraged to scheduleUT D with cologuard - 08/2022UTD with PCP for routine labs Suggested Calcium with Vitamin D daily. Patient advised to get an annual flu shot in the fall and she could obtain at local pharmacy. Also to obtain TDap vaccinatio n if you have not had one in the last 10 years. Recommend yearly mammograms . Encouraged monthly self breast exams. Encourage safe sexual practices, to use condoms and limit partners if not already in a monogamous relationsh ip. Engage in regular exercise. Avoid tobacco and illicit drugs. This lifestyle behavior pattern will lead to less health conditions and longer life span. If BMI greater than 25 dietary consult advised. All questions have been answered. Screening for malignant neoplasm of breast [id number] Z12.39 Breast lump [id number] N63 .0 Health Concerns Section Related Observation LastModified by Organization Detai ls LastModified Time None Recorded Concern Status LastModified by Organization Details LastModified Time None Recorded Advance Directives Directive N: Payers Insurance Date Sequence Insurance Name Policy Number Policy Kang Covered Member ID Kang Member ID Guarantor Name 02/13/2024 2 () Gayle Jorge [id number] Gayle Jorge 09/15/2021 2 [place] [id number] Fidel Jorge [id number] Gayle Jorge 02/10/2024 1 [facility] [id number] Gayle Jorge [id number] Gayle Jorge Notes Date Note Type Note Provider Name and Address Organization Details Recorded Time 12/15/2022 text/html Annual GYNReport ed bypatient.Urinary symptoms:No hematuria; No incontinence Vulva:No genital lesion Vagina:Normal vaginal discharge Breast:No breast pain; No breast lump; No nipple discharge Current Contraception:hx of hyst, BS in 2021 for aub/fibroids Sexual complaints:No sexual complaints; No pain during intercourse; Normal libido Menopausal Symptoms:No menopausal symptoms; Normal vaginal lubrication Psychological symptoms:No depression; No anxiety; No PMDD Preventive measures:Encourage self breast examination; Encourage regular exercise; Encourage no tobacco use; Encourage regular mammograms starting age 40; Needs to schedule mammogram YUDI Giraldo [address], [place], [address], [facility] 12/15/2022 17:53:30 01/02/2023 text/html 47-year-old selina paul who presents for vaginal polyp. She was examined. There was a polyp at the vaginal cuff. It is on a stalk. We agreed to removed. It was hyperemic and vascular. Packing forceps was used to crush the stalk. The stalk was then transected. It bled mildly. Silver nitrate was used to make hemostatic. She tolerated it well. We will follow-up on the pathology results. Stalk emanating from the vaginal Wall, proximal and on the left side. Matti Orozco MD [address], [place], [address], [facility] 01/02/2023 20:54:04 01/24/2023 text/html 47-year-old selina paul who presents for follow-up on weight management. Patient had marked improvement weight loss over the last 2 months. patient is dividing dose is up the medication after putting in a sterile cup and and 2 doses. she is making a 15 mg syringe of the new GLP 1 agonist last almost 3 months. She is Active. She is going to the gym 3 times a week. Her social life is chilled so she is able to be more focused on her lifestyle changes. we spent 20 minutes [id number]. More than 50% was counseling Matti Orozco MD [address], [place], [address], [facility] 01/24/2023 10:33:30 06/01/2023 text/html 47-year-old selina paul who presents for follow-up on weight management. Patient had marked improvement weight loss over the last 2 months. patient is dividing dose is up the medication after putting in a sterile cup and and 2 doses. she is making a 15 mg syringe of the new GLP 1 agonist last almost 3 months. She is Active. She is going to the gym 3 times a week. Her social life is chilled so she is able to be more focused on her lifestyle changes. we spent 20 minutes itaz-go-zqgo. More than 50% was counseling Matti Orozco MD [address], [place], [address], [facility] 06/01/2023 17:39:22 02/13/2024 text/html Annual GYNReport ed bypatient.Menstrual cycle:Normal menses Urinary symptoms:No hematuria; No incontinence Vulva:No genital lesion Vagina:Normal vaginal discharge Breast:No breast pain; No breast lump; No nipple discharge Current Contraception:hyst Sexual complaints:No sexual complaints; No pain during intercourse; Normal libido Menopausal Symptoms:No menopausal symptoms; Normal vaginal lubrication Psychological symptoms:No depression; No anxiety; No PMDD Preventive measures:Encourage self breast examination; Encourage regular exercise; Encourage no tobacco use; Encourage regular mammograms starting age 40Notes:48yo wweh/o TLH, BS for fibroids/AUBmammogra m - needs ordercologuard done 2022 YUDI Giraldo [address], [place], [address], [facility] 02/13/2024 15:18:57 OBGyn Episode Ob Episode Information Episode Created Date Number of Fetuses Patient Bloodtype Patient rh Status Prepregnancy Weight lbs Domestic Partner Domestic Partner Phone Father Name Intelligence Engineer Status 01/06/20 20 1 CLOSED Fetus Data First Name Last Name Admitted to NICU Weight (g) Sex Living Outcome Pediatric Complications Fetus ID Race Codes Race Delivery Type 2806.37 3704 M Full Term [id number] Primary Thong Calculation Initial Thong Date Initial Exam Date Initial Exam Provider Initial Ultrasound Date Last Menstrual Period Date Ultra Sound Weeks Gestation 0 Eighteen To Twenty Week Thong Update Ultra Sound Date Fundal Height At Umbil Quickening Date Ultra Sound Latest Weeks Gestation Final Thong Confirmed By Final Thong Confirmed Date Final Thong Date Ultra Sound Latest Days Gestation 0 0 Menstrual History Last Menstrual Date Menses Monthly On Bcp Conception Prior Menses Frequency Hcg Plus Date Menarche Onset Age Delivery Information Delivery Date Delivery Type Labor Anesthesia Weeks Gestation Incision Type Labor Labor Length Hrs Delivered By Post Complications Tubal Sterilization Discharge Date Comments 3 37 Discharge Information Feeding Method Contraceptive Method Maternal HG B and HCT Levels Ob Episode Information Episode Created Date Number of Fetuses Patient Bloodtype Patient rh Status Prepregnancy Weight lbs Domestic Partner Domestic Partner Phone Father Name Intelligence Engineer Status 01/06/20 20 1 CLOSED Fetus Data First Name Last Name Admitted to NICU Weight (g) Sex Living Outcome Pediatric Complications Fetus ID Race Codes Race Delivery Type , Spontane ous [id number] Thong Calculation Initial Thong Date Initial Exam Date Initial Exam Provider Initial Ultrasound Date Last Menstrual Period Date Ultra Sound Weeks Gestation 0 Eighteen To Twenty Week Thong Update Ultra Sound Date Fundal Height At Umbil Quickening Date Ultra Sound Latest Weeks Gestation Final Thong Confirmed By Final Thong Confirmed Date Final Thong Date Ultra Sound Latest Days Gestation 0 0 Menstrual History Last Menstrual Date Menses Monthly On Bcp Conception Prior Menses Frequency Hcg Plus Date Menarche Onset Age Delivery Information Delivery Date Delivery Type Labor Anesthesia Weeks Gestation Incision Type Labor Labor Length Hrs Delivered By Post Complications Tubal Sterilization Discharge Date Comments 8 Discharge Information Feeding Method Contraceptive Method Maternal HG B and HCT Levels
--- OUTSIDE RECORDS SUMMARY | 2024-09-09 16:25 | XMS_ITS | Clinical Summary ---
Author Organization [address] Address [address] [place] [id number] Care Team Providers Care Sand Cutting Machine Operator Name Role Phone Ame Farias GEOLOGY PROFESSOR Primary Care Provider Allergies Active Allergy Reactions [...] Dates Next Due Pneumococcal Conjugate Pcv20 07/20/2022 Surgical History Surgery Date Site/Laterality Comments OTHER SURGICAL HISTORY 2007 : missed OTHER SURGICAL HISTORY 2006 : spontaneous OTHER SURGICAL HISTORY 2012 : OTHER SURGICAL HISTORY 03/06/2016 - 03/05/2017 breast reduction HYSTERECTOMY 03/06/2022 - 03/05/2023 GALLBLADDER SURGERY 03/06/2017 - 03/05/2018 OTHER SURGICAL HISTORY 03/06/2011 - 03/05/2012 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 TONSILLECTOMY 03/06/1991 - 03/05/1992 Medical History Medical History Date Comments Hx Other Medical 2007 ; Comm ents: IVF conception- embryonic loss at 7 weeks; Outcome: 7 week Unknown sex Hx Other Medical 2006 ; Comm ents: IVF conception embryonic loss at 6 weeks; Outcome: 6 week Unknown sex Hx Other Medical 2012 ; Comm ents: failed induction scleroderma, IUGR, RPL Scleroderma (HCC) Family History Medical History Relation Name Comments Breast cancer Maternal Grandfather Relation Name Status Comments Maternal Grandfather Social History Tobacco Use Types Packs/Day Years Used Date Smoking Tobacco: Never Tobacco Cessation:Counseling Given: Not Answered Alcohol Use Standard Drinks/Week Comments No 0 (1 standard drink = 0.6 oz pur e alcohol) Comments Unknown Sex and Gender Information Value Date Recorded Sex Assigned at Not on file Legal Sex Female 2:38 AM WOOD WEB WEAVING MACHINE OPERATOR Gender Identity Not on file Sexual Orientation Not on file Obstetrics History Last Filed Vital Signs Vital Sign Reading Time Taken Comments Blood Pressure 136/72 09/05/2012 11:55 AM CDT Pulse - - Temperature - - Respiratory Rate - - Oxygen Saturation - - Inhaled Oxygen Concentration - - Weight 87.5 kg (192 lb 12.8 oz) 04/09/2024 8:31 AM WOOD WEB WEAVING MACHINE OPERATOR Height 165.1 cm (5' 5) 04/09/2024 8:31 AM WOOD WEB WEAVING MACHINE OPERATOR Body Mass Index 32.08 04/09/2024 8:31 AM WOOD WEB WEAVING MACHINE OPERATOR Plan of Treatment Health Maintenance Due Date Last Done Comments Breast Cancer Screening-Mammogram 1976 Colon Cancer Screening-Colonoscopy 1976 Depression Screening 1976 Hepatitis C Screening 1976 DTaP/Tdap/Td Vaccine (1 - Tdap) 05/16/1987 Hepatitis B Screening 1994 Regular Well Visit/Exam 18-64 1994 Zoster Vaccine (1 of 2) 05/16/1995 Covid-19 Vaccine (3 - Pfizer risk series) 08/08/2020 07/11/2020, 06/20/2020 Influenza Vaccine (Season Ended) 2024 Pneumococcal vaccine <65 Completed 07/20/[address] [place] [address] [place] [address] [place] [address] [facility] [place] [address] Care Teams Sand Cutting Machine Operator Relationship Specialty Start Date End Date Ame Farias NP [address] [place] [address] PCP - General Obstetrics and Gynecology 02/29/24
[2024-09-09 17:25] LABS: Hematocrit 37.9 % (37.0-47.0); Hemoglobin 11.9 g/dL (12.0-15.0); Mean Corpuscular HGB Conc 31.4 g/dl (32-36); Mean Corpuscular Hemoglobin 30.6 pg (26-34); Mean Corpuscular Volume 97.4 fl (80-100); Platelet Count Result 254 k/mm3 (150-375); Red Blood Count 3.89 M/mm3 (4.2-5.4); White Blood Count 8.1 K/mm3 (4.5-10.0)
== END 2024-09-09 16:17 | disposition home or self-care (01) ==
PROVIDERS: Visit Provider Internal Medicine Rheumatology
DX: J84.9 Interstitial pulmonary disease, unspecified (principal); M34.0 Progressive systemic sclerosis; Z51.81 Encounter for therapeutic drug level monitoring; Z79.899 Other long term (current) drug therapy; I31.39 Other pericardial effusion (noninflammatory)
CPT/HCPCS: 36415; 71250; 85027

== ENCOUNTER 2024-09-11 15:56 | Outpatient (CLI) | payer OTHER, SELFPAY ==
--- NOTE | 2024-09-11 | ECG_ITS ---
Test Date: 2024-09-11 16:22:50 Measurements Intervals [place] Rate: 64 P: 53 OR: 188 QRS: 40 QRSD: 82 T: 74 QT: 399 QTc: 413 Interpretive Statements SINUS RHYTHM POSSIBLE LEFT ATRIAL ENLARGEMENT [-0.1mV P-WAVE IN V1/V2] LOW QRS VOLTAGE [QRS DEFLECTION < 0.5/1.0 mV IN LIMB/CHEST LEADS] POSSIBLE ANTERIOR MYOCARDIAL INFARCTION , PROBABLY OLD [30 ms Q WAVE IN V3/V4, OR R < 0.2 mV IN V4] No previous ECG available for comparison Electronically Signed On 09-12-2024 11:41:22 CDT by Beka Russell M.D.
--- OUTSIDE RECORDS SUMMARY | 2024-09-11 16:01 | XMS_ITS | Encounter Summary ---
Author Organization [facility] Health Address [address] [place] [address] Care Team Providers Care Hoisting Engineer Pile Driving Name Role Phone Miceky Gillespie PA-C Primary Care Provide r Rosalio Rankin MD Unavailable [phone] Reason for Visit * Reason Onset Date Comments Reschedule Appointment 03/30/2023 Encounter Details Date Type Department Care Team (Late st Contact Info) Description 03/30/2023 Telephone [facility] - Centralized Scheduling [address] [place] [address] Rolando Kathleen MD [address] OF PULMONARY/[place] [address] Reschedule Appointment Social History Tobacco [...] on file Legal Sex Female 9:53 AM UTILITY ACCOUNTS DIRECTOR Gender Identity Not on file Sexual Orientation [...] added this appointment to the wait list. ITY ACCOUNTS DIRECTOR documented in this encounter Plan of Treatment Upcoming Encounters Date Type Department Care Team (Late st Contact Info) Description 11/08/2024 9:00 AM CDT Office Visit [facility] - Pulmonology [address] [place] [phone] Rolando Kathleen MD [address] [place] [address] 2L DIV OF PULMONARY/[place] [phone] 02/11/2025 8:30 AM UTILITY ACCOUNTS DIRECTOR Office Visit [facility] - Pulmonology [address] [place] [phone] Rolando Kathleen MD [address] [place] [address] 2L DIV OF PULMONARY/[place] [phone] 02/11/2025 3:00 PM UTILITY ACCOUNTS DIRECTOR [facility] - Rheumatology [address] [place] [phone] Kristen Mcgarry MD [address] [place] [address] 2L [place] [phone] documented as of this encounter Visit Diagnoses Not on filedocumented in this encounter Care Teams Hoisting Engineer Pile Driving Relationship Specialty Start Date End Date Mickey Gillespie PA-C [address] [facility] [address] [place] [address] PCP - General Physician Cost Estimating Engineer 09/20/21 Rosalio Rankin MD [facility]7 [facility] 200 [place] [address] Cardiology 09/20/21 documented as of this encounter
--- OUTSIDE RECORDS SUMMARY | 2024-09-11 16:01 | XMS_ITS | Encounter Summary ---
Author Organization [facility] Health Address [address] [place] [address] Care Team Providers Care Manager Media Name Role Phone Mickey Gillespie PA-C Primary Care Provide r Rosalio Rankin MD Unavailable [phone] Encounter Details Date Type Department Care Team (Late st Contact Info) Description 07/10/2024 Telephone [facility] - Pulmonology [address] [facility], [place] [address] Rolando Kathleen MD [address] [place] [address] DIV OF PULMONARY/[place] [address] Social History Tobacco Use Types [...] on file Legal Sex Female 9:53 AM HISTOLOGIST Gender Identity Not on file Sexual Orientation [...] signed by Provider. * Telephone Encounter - Sanyd Mcdaniel - 07/10/2024 11:03 AM CDT Current Provider: Dr. Rolando Kathleen Reason for Call: [facility] is calling to have Dr. Kathleen/Dr. Ortiz sign papers for Gayle Jorge.Please sign and fax back Any questions call [facility] [phone] Ext [phone] Patient Call Back Number: [phone] documented in this encounter Plan of Treatment Upcoming Encounters Date Type Department Care Team (Late st Contact Info) Description 11/08/2024 9:00 AM CDT Office Visit [facility] - Pulmonology [address] [place] [address], [place] [phone] Rolando Kathleen MD [address] [place] [address] 2L DIV OF PULMONARY/[place] [address] 02/11/2025 8:30 AM HISTOLOGIST Office Visit [facility] - Pulmonology [address] [place] [address], [place] [phone] Rolando Kathleen MD [address] [place] [address] 2L DIV OF PULMONARY/[place] [address] 02/11/2025 3:00 PM HISTOLOGIST Office Visit [facility] - Rheumatology [address] [place] [address], [place] [phone] Kristen Mcgarry MD [facility] 2L [place] [address] documented as of this encounter Visit Diagnoses Not on filedocumented in this encounter Care Teams Manager Media Relationship Specialty Start Date End Date Mickey Gillespie PA-C [address] [facility] [address] [place] [address] PCP - General Physician Graduate School Dean 09/20/21 Rosalio Rankin MD [address] [place] [address] Cardiology 09/20/21 documented as of this encounter
--- OUTSIDE RECORDS SUMMARY | 2024-09-11 16:01 | XMS_ITS | Referral Summary ---
Author Organization [address] Address [address] [place] [phone] Care Team Providers Care Mechanical Systems Engineer Name Role Phone Ame Farias SKIMMER SCOOP OPERATOR Primary Care Provider Allergies Active Allergy Reactions [...] on file Legal Sex Female 2:38 AM BOTTLING ATTENDANT Gender Identity Not on file Sexual Orientation Not on file Last Filed Vital Signs Vital Sign Reading Time Taken Comments Blood Pressure 136/72 09/05/2012 11:55 AM CDT Pulse - - Temperature - - Respiratory Rate - - Oxygen Saturation - - Inhaled Oxygen Concentration - - Weight 87.5 kg (192 lb 12.8 oz) 04/09/2024 8:31 AM BOTTLING ATTENDANT Height 165.1 cm (5' 5) 04/09/2024 8:31 AM BOTTLING ATTENDANT Body Mass Index 32.08 04/09/2024 8:31 AM BOTTLING ATTENDANT Plan of Treatment Not on file Insurance [facility] CHOICE [facility] H[facility]/PPO Address: [facility] [address] [facility] CHOICE [facility]US [facility] HMO/PPO Address: [id number] [place] [address] [facility] Care Teams Mechanical Systems Engineer Relationship Specialty Start Date End Date Ame Farias NP [address] [place] [address] PCP - General Obstetrics and Gynecology 02/29/24
--- OUTSIDE RECORDS SUMMARY | 2024-09-11 16:01 | XMS_ITS | Encounter Summary ---
Author Organization [facility] Healthcare Address [address] [place] [address] Care Team Providers Care Reservations Sales Supervisor Name Role Phone Unavailable Primary Care Provider Unavailabl e Reason for Visit * Diagnostic Imaging (Routine) - Pending Review Specialty Diagnoses / Procedures Referred By Sharif savage Referred To Contact Procedures Breast Imaging Screening Outside Reference Mindi De Dios NP Phone: tel: fax: Referral ID Status Reason Start Date Expiration Date V isits Requested Visits Authorized [id number] Pending Review 03/19/2024 04/18/2025 1 1 Encounter Details Date Type Department Care Team (Late st Contact Info) Description 03/15/[address] En[address] [facility] [address] [place] [address] Social History Tobacco Use Types Packs/Day Years Used Date Smoking Tobacco: Never Alcohol Use Standard Drinks/Week Comments No 0 (1 standard drink = 0.6 oz pur e alcohol) Comments Unknown Sex and Gender Information Value Date Recorded Sex Assigned at Not on file Legal Sex Female 2:38 AM LIVESTOCK RANCHER Gender Identity Not on file Sexual Orientation Not on file documented as of this encounter Plan of Treatment Not on file documented as of this encounter Procedures Procedure Name Priority Date/Time Associated Diagnosis Comments BREAST IMAGING MG SCREENING OUTSIDE REFERENCE Routine 03/15/2017 12:00 AM LIVESTOCK RANCHER documented in this encounter Results * Breast Imaging Screening Outside Reference (03/15/2017 12:00 AM LIVESTOCK RANCHER) Impressions RAD_MAMMO_[facility] - 03/19/2024 7:56 PM LIVESTOCK RANCHER These images are for Reference purposes only and have not been reviewed by [facility] Radiology. There will be no report generated by a [facility] Radiologist. Narrative RAD_MAMMO_[facility] - 03/19/2024 7:56 PM LIVESTOCK RANCHER EXAMINATION: Images For Reference Purposes Only us Mindi De Dios NP IMG MAMMO PROCEDURES Final Res ult [facility]_MAMMO[facility] documented in this encounter Visit Diagnoses Not on filedocumented in this encounter
--- OUTSIDE RECORDS SUMMARY | 2024-09-11 16:01 | XMS_ITS | Clinical Summary ---
Author Organization [address] Address [address] [place] [phone] Care Team Providers Care Senior Backup Administrator Name Role Phone Ame Farias TOOL TURRET LATHE SET UP OPERATOR Primary Care Provider Allergies Active Allergy [...] on file Legal Sex Female 2:38 AM COUNTY COMMISSIONER Gender Identity Not on file Sexual Orientation Not on file Obstetrics History Last Filed Vital Signs Vital Sign Reading Time Taken Comments Blood Pressure 136/72 09/05/2012 11:55 AM CDT Pulse - - Temperature - - Respiratory Rate - - Oxygen Saturation - - Inhaled Oxygen Concentration - - Weight 87.5 kg (192 lb 12.8 oz) 04/09/2024 8:31 AM COUNTY COMMISSIONER Height 165.1 cm (5' 5) 04/09/2024 8:31 AM COUNTY COMMISSIONER Body Mass Index 32.08 04/09/2024 8:31 AM COUNTY COMMISSIONER Plan of Treatment Health Maintenance Due Date [...] 2024 Pneumococcal vaccine <65 Completed 07/20/[address] [place] [address] [address] [place] [address] [facility] CHOICE PL[place] [address] Care Teams Senior Backup Administrator Relationship Specialty Start Date End Date Ame Farias NP [address] [place] [address] PCP - General Obstetrics and Gynecology 02/29/24
--- OUTSIDE RECORDS SUMMARY | 2024-09-11 16:01 | XMS_ITS | Encounter Summary ---
Author Organization [facility] Healthcare Address [address] [place] [address] Care Team Providers Care Toll Line Mechanic Name Role Phone Unavailable Primary Care Provider Unavailabl e Reason for Visit * Diagnostic Imaging (Routine) - Pending Review Specialty Diagnoses / Procedures Referred By Sharif savage Referred To Contact Procedures Breast Imaging Screening Outside Reference Mindi De Dios NP Phone: tel: fax: Referral ID Status Reason Start Date Expiration Date V isits Requested Visits Authorized [id number] Pending Review 03/19/2024 04/18/2025 1 1 Encounter Details Date Type Department Care Team (Late st Contact Info) Description 02/04/2020 Hospital Encounter [facility] [address] [place] [address] Social History Tobacco Use Types Packs/Day Years Used Date Smoking Tobacco: Never Alcohol Use Standard Drinks/Week Comments No 0 (1 standard drink = 0.6 oz pur e alcohol) Comments Unknown Sex and Gender Information Value Date Recorded Sex Assigned at Not on file Legal Sex Female 2:38 AM PROGRAM SUPERVISOR Gender Identity Not on file Sexual Orientation Not on file documented as of this encounter Plan of Treatment Not on file documented as of this encounter Procedures Procedure Name Priority Date/Time Associated Diagnosis Comments BREAST IMAGING MG SCREENING OUTSIDE REFERENCE Routine 02/04/2020 12:00 AM PROGRAM SUPERVISOR documented in this encounter Results * Breast Imaging Screening Outside Reference (02/04/2020 12:00 AM PROGRAM SUPERVISOR) Impressions RAD_MAMMO_[facility] - 03/19/2024 7:56 PM PROGRAM SUPERVISOR These images are for Reference purposes only and have not been reviewed by [facility] Radiology. There will be no report generated by a [facility] Radiologist. Narrative RAD_MAMMO_[facility] - 03/19/2024 7:56 PM PROGRAM SUPERVISOR EXAMINATION: Images For Reference Purposes Only us Mindi De Dios NP IMG MAMMO PROCEDURES Final Res ult [facility]_MAMMO[facility] documented in this encounter Visit Diagnoses Not on filedocumented in this encounter
--- OUTSIDE RECORDS SUMMARY | 2024-09-11 16:01 | XMS_ITS | Clinical Summary ---
Author Organization [facility] Address [address] [facility] [place] [address] Care Team Providers Care Product Distribution Specialist Name Role Phone Mickey Gillespie PA-C Primary Care Provide r Rosalio Rankin MD Unavailable [phone] Source Comments [facility],non-ssm health care Affiliates and Associated Physician Practices is amultiple site organization consisting of ambulatory clinics and hospital sitesin [place] and [place]. This disclosure is being madepursuant to the Care Everywhere program and may not contain all information available regarding this patient. Last updated 17.[facility] Allergies Active Allergy Reactions Criticality Noted Date [...] Type Department Care Team Description 09/09/2024 Telephone [facility] - Rheumatology [address] [place] [phone] Kristen Mcgarry MD Order 09/04/2024 Telephone [facility] - Pulmonology [address] [place] [phone] Carmina Gresham RN Future Appointment (/) 08/28/2024 2:20 PM CDT Office Visit [facility] - Rheumatology [address] [place] [phone] Kristen Mcgarry MD Progressive systemic sclerosis (HCC) (Primary Dx); Encounter for long-term (current) use of high-risk medication; Encounter for therapeutic drug monitoring; ILD (interstitial lung disease) (HCC) 08/28/2024 Travel 07/12/2024 Orders Only [facility] - Rheumatology [address] [place] [phone] Kristen Mcgarry MD Progressive systemic sclerosis (HCC); Encounter for long-term (current) use of high-risk medication; Encounter for therapeutic drug monitoring 07/10/2024 Telephone [facility] - Pulmonology [address] [place] [phone] Rolando Kathleen MD 06/13/2024 Telephone [facility] - Pulmonology [address] [place] [phone] Rolando Kathleen MD Follow-up Report from Last [...] on file Legal Sex Female 9:53 AM MATHEMATICAL TECHNICIAN Gender Identity Not on file Sexual Orientation [...] Visit [facility] - Pulmonology [address] [place] [address], [place] [address] Rolando Kathleen MD [address] [place] [address] 2[address] DIV OF PULMONARY/[place] [phone] 02/11/2025 8:30 AM MATHEMATICAL TECHNICIAN Office Visit [facility] - Pulmonology [address] [place] [phone] Rolando Kathleen MD [address] [place] [address] 2L DIV OF PULMONARY/[place] [phone] 02/11/2025 3:00 PM MATHEMATICAL TECHNICIAN Office Visit [facility] - Rheumatology [address] [place] [phone] Kristen Mcgarry MD [address] [place] [address] 2L [place] [phone] Health Maintenance Due Date Last Done Comments [...] 08/24/2024 7:09 AM CDT Performed at: [address] [id number] Health Care Liaison: Jarad Hooper PhD, Phone: [phone] Kristen Mcgarry MD LAB - CHEMISTRY ORDERA BLES Final Result Performing Organization Address City/[facility]/ZIP Co de Phone Number [facility] INSURANCE BILL [address] [place] [address] * (ABNORMAL) ERYTHROCYTE SEDIMENTATION RATE (08/23/2024 11:39 AM CDT) Pathologist [facility] Erythrocyte Sedimentation Rate Westergren 33(H) 0 - 32 mm/hr [facility] INSURANCE BILL Blood BLOOD SPECIMEN / Unknown 08/23/2024 11:39 AM CDT 08/23/2024 Narrative [facility] INSURANCE BILL - 08/24/2024 7:09 AM CDT Performed at: 01 - [address] [id number] Health Care Liaison: Jarad Hooper PhD, Phone: [phone] Kristen Mcgarry MD LAB - HEMATOLOGY ORDER STAR Final Result Performing Organization Address City/[facility]/ZIP Co de Phone Number [facility] INSURANCE BILL [address] [place] [address] * CBC WITH DIFFERENTIAL (08/23/2024 11:39 AM CDT) [facility] WBC 6.8 3.4 - 10.8 x10E3/uL [facility] [...] 08/24/2024 7:09 AM CDT Performed at: [address] [id number] Health Care Liaison: Jarad Hooper PhD, Phone: [phone] Kristen Mcgarry MD LAB - HEMATOLOGY ORDER STAR Final Result [facility] INSURANCE BILL [address] [place] [address] * (ABNORMAL) COMPREHENSIVE METABOLIC PANEL (08/23/2024 11:39 AM CDT) [facility] Glucose 66(L) 70 - 99 mg/dL [facility] [...] 7:09 AM CDT Performed at: 01 - [address] [id number] Health Care Liaison: Jarad oHoper PhD, Phone: [phone] us Kristen Mcgarry MD LAB - CHEMISTRY ANASTASIA RUBIO Final Result [facility] INSURANCE BILL [address] [place] [address] from Last 3 Months Insurance [facility] * Guarantor: AMARJIT MONTES DE OCA Account Type Relation to Patient Date of Phone Billing Address Personal/Family Other Advance Directives * Full Code (Latest Code Status on File) Date Activated Date Inactivated Comments 09/27/2021 8:49 AM 09/27/2021 10:22 AM Care Teams Product Distribution Specialist Relationship Specialty Start Date End Date Mickey Gillespie PA-C [address] [place] [address] PCP - General Physician Circulation Man 09/20/21 Rosalio Rankin MD [address] [facility] [address] [place] [address] Cardiology 09/20/21
--- OUTSIDE RECORDS SUMMARY | 2024-09-11 16:02 | XMS_ITS | Data Portability ---
Author Organization [facility] Address [address] [place] [address] [place] [address] Care Team Providers Care Processing Engineer Name Role Phone INNA DIEGO Primary Care Provider [phone] Assessment Encounter Date Assessment Date Assessment LastModified by Organization Details LastModified Time 12/15/2022 12/15/2022 Annual gynecological exam performed. Patient will come back in a year unless there are new symptoms. [email or web address] Not available 12/15/2022 16:51:49 02/13/2024 02/13/2024 Annual gynecological exam performed. Patient will come back in a year unless there are new symptoms. [email or web address] Not available 02/13/2024 14:47:54 Plan of Treatment Reminders Order Date Submit Date Provider Last Modified By Organization Details Last Modified Time Details Appointments None recorded. Lab None recorded. Referral None recorded. Procedures None recorded. Surgeries None recorded. Imaging US, breast, unilateral - left breast lump 2023 [email or web address] [place] [address] [facility], [address], [address], [place], [address], 15:44:46 MAMMO, diagnostic, digital, bilateral 2023 024 [facility], [address], [address], [place], [address], 4 15:03:02 Medication Orders Mounjaro 15 mg/0.5 mL subcutaneou s pen injector 2023 024 [email or web address] 1 [facility] 2425, [address] [facility], [place], [address], 4 14:48:49 Mounjaro 15 mg/0.5 mL subcutaneou s pen injector 2022 023 [email or web address] 1 [facility] 2425, [address] [facility], [place], [address], 4 14:48:49 Patient TargetsNo targets recorded. Patient [...] granu latio n tissu eTsering adkins by aLnre Da Silva MD on 01/03 at 2:53 PM ----- ----- ----- ----- ----- ----- ----- ----- ----- ----- ----- ----- ----- ----- ----- ----- ----- ---- CLINI JEWESL INFOR MATBETTIE N: n84.2 MICRO SCOPI C [...] ed by Winter Lambert on Not Available [facility] (Lab) [address], [place], [address], 01/03/2023 15:56:24 02/29/20 24 02/29/2024 MAMMO , diagn ostic , digit al, bilat eral No observ ation record ed. [email or web address] [place] [address], [address], 02/29/2024 15:44:26 04/11/19 25 02/29/2024 US, breas t, unila teral No observ ation record ed. [address] [facility], [place], [address], 04/11/2024 16:17:24 04/11/19 25 02/29/2024 MAMMO , diagn ostic , digit al, bilat eral No observ ation record ed. [address] [place] [address], [id number], 04/11/2024 16:17:24 Result Notes None recorded. Problems Name Problem SNOMED Code Status Onset Date Resolution Date Notes Provider Name and Address Organization Details Recorded Time Speciali zed medical examinat ion Completed 201302/01/2021 Other specified chlamydia l diseases; Recorded Elsewhere : No Locati on: [facility] So urce: EHR Chron ic: N Practic e ID: 0001 Bill able Time: 04:30:00 PM Sherri Lugo [place], [place] - [facility] 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 17:42:34 Screenin g for malignan t neoplasm of cervix Completed 201702/01/2021 Screening for malignant neoplasms of the cervix;Re corded Elsewhere : No Locati on: [facility] So urce: EHR Chron ic: N Practic e ID: 0001 Bill able Time: 05:00:00 PM Sherri Lugo [facility] 17:42:28 Syphilis test finding [id number] Completed 201702/01/2021 Encntr screen for infection s w sexl mode of transmiss ;Recorded Elsewhere : No Locati on: [facility] So urce: EHR Chron ic: N Practic e ID: 0001 Bill able Time: 05:00:00 PM Sherri [facility] 17:42:38 Finding of body mass index 062947316 Completed 201502/01/2021 Body mass index (BMI) 40.0-44.9 , adult;Rec orded Elsewhere : No Locati on: [facility] So urce: EHR Chron ic: N Practic e ID: 0001 Bill able Time: 05:15:00 PM Sherri Lugo [facility] 17:42:05 Pain 08821120 Completed 201502/01/2021 Pain;Juan José rded Elsewhere : No Locati on: [facility] So urce: EHR Chron ic: N Practic e ID: 0001 Bill able Time: 05:15:00 PM Sherri Lugo [facility] 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 17:42:32 Screenin g for malignan t neoplasm of rectum Completed 201602/01/2021 Encounter for screening for malignant neoplasm of rectum;Re corded Elsewhere : No Locati on: [facility] So urce: EHR Chron ic: N Practic e ID: 0001 Bill able Time: 09:30:00 AM Sherri willingham [facility] 17:42:30 Infectio n screenin g Completed 201702/01/2021 Encounter for screening for oth infec/par astc diseases; Recorded Elsewhere : No Locati on: [facility] So urce: EHR Chron ic: N Practic e ID: 0001 Bill able Time: 05:00:00 PM Sherri willingham [facility] 1 17:42:07 Adult health examinat ion Completed 201302/01/2021 ROUTINE MEDICAL EXAM;Juan José rded Elsewhere : No Locati on: [facility] So urce: EHR Chron ic: N Practic e ID: 0001 Bill able Time: 04:30:00 PM Sherri willingham [facility] 1 17:42:03 Venereal disease screenin g Completed 201302/01/2021 Screening examinati on for venereal disease;R ecorded Elsewhere : No Locati on: [facility] So urce: EHR Chron ic: N Practic e ID: 0001 Bill able Time: 04:30:00 PM Sherri willingham [facility] 1 17:42:39 Problem Notes None recorded. Procedures Surgical History Date Name Laterality Status Provider Name and Address Organization Details Recorded Time 02/13/20 24 Date of [facility]/13[facility]2024 14:54:03 01/03/20 23 vaginal biopsy [facility] 02/13/2024 14:55:24 08/05/19 23 Date of Last Colonoscopy completed Crystal Patel [facility] 06/01/2023 17:15:12 12/08/19 22 TOTAL HYSTERECTOMY, LAPAROSCOPIC, WITH BILATERAL SALPINGECTOMY (SURG) completed Keketarah Hager [facility] 12/08/2021 11:53:30 09/28/19 22 Endometrial Biopsy completed Matti Orozco MD [address], [place], [address], [facility] 09/27/2021 23:32:12 09/28/19 22 endometrial biopsy completed [facility] 02/13/2024 14:54:52 02/04/20 20 Date of Last Mammogram completed [facility] 02/01/2021 17:43:26 03/06/19 14 extraction of wisdom tooth completed [facility] 02/13/2024 14:55:41 07/21/19 13 Caesarean Section completed [facility] 08/16/2022 14:27:59 03/06/19 02 excision of benign tumor of breast completed [facility] 02/01/2021 17:44:52 03/06/18 89 Tonsillectomy completed [facility] 02/13/2024 14:56:09 Imaging Results None recorded. Procedure Notes None recorded. Medical Equipment None Reported. Allergies Allergen ID Allergen Name Allergen Category Reaction Reaction Severity Criticality Documentation Date Start Date Code Code System Note Provider Name and Address Organization Details Recorded Time 90880 shellfish derived food,medi cation Not available Not available Not available 02/21/2020 05931 UNK React ion: (julisa re);S everi ty: esdras e; Comme nt: Locat ion: Crystal [facility]auricio [facility]; Not Available [facility] 0 14:17:57 Medications Name Sig Start Date [...] Elsewher e: Yes Loca tion: Chloe day [facility] odify By: [email or web address] Lyssa kidd DateTime : [...] Prescrib ed Elsewher e: Yes Loca tion: [facility] odify By: [email or web address] trick En counter [...] Updated DateTime 06/01/2023 165.1 cm 34.3 kg/m2 31149.03 g 95/65 mm[Hg] Crystal Jorge [facility] 06/01/2023 17:11:56 Date Recorded Body height Body mass index (BMI) Body weight Systolic And Diastolic Provider Name and Address Organization Details Last Updated DateTime 12/15/2022 165.1 cm 36.8 kg/m2 455843.91 g 120/65 mm[Hg] Rae Tapia [facility] 12/15/2022 16:52:05 Date Recorded Body height Body mass index (BMI) Body weight Systolic And Diastolic Provider Name and Address Organization Details Last Updated DateTime 01/02/2023 165.1 cm 36.6 kg/m2 24757.32 g 134/76 mm[Hg] [facility] 01/02/2023 16:45:42 Date Recorded Body height Body mass index (BMI) Body weight Systolic And Diastolic Provider Name and Address Organization Details Last Updated DateTime 01/24/2023 165.1 cm 35.1 kg/m2 06022.99 g 116/65 mm[Hg] [facility] 01/24/2023 09:56:58 Date Recorded Body height Body mass index (BMI) Body weight Systolic And Diastolic Provider Name and Address Organization Details Last Updated DateTime 02/13/2024 165.1 cm 32.6 kg/m2 86502.1 g 124/79 mm[Hg] Brianna Jacobson [facility] 02/13/2024 14:48:25 Social History Question Answer Notes LastModified by Organizat ion Details LastModified Time Tobacco Smoking Status Never Smoker [facility] 01/24/2023 09:41:40 Do You Have An [...] Or The Highest Degree You Have Received? CC17533-2 Information not available 02/01/2021 Are There Any [...] Have Difficulty Walking Or Climbing Stairs? No [email or web address] Information not available 02/13/2024 Sex: Unknown Functional Status Question Answer Note LastModified by Organizat ion Details LastModified Time Do you use any illicit or recreational drugs? No Information not available 02/01/2021 What is your level of alcohol consumption? Occasional Information not available 02/01/2021 Are you able to walk? YESWOREST Information not available 02/01/2021 Are you able to care for yourself? Yes [email or web address] Information n ot available 01/24/2023 Do you have difficulty dressing or bathing? No [email or web address] Information not available 02/13/2024 What is your exercise level? Occasional Information not available 02/01/2021 Mental Status Question Answer Note LastModified by Organization D etails LastModified Time Do you feel stressed (tense, restless, nervous, or anxious, or unable to sleep at night)? [id number] Information not available 02/01/2021 Family History Relationship Description Onset Age of this Age Resolved Age Notes LastModified by Organization Details LastModified Time Paternal Grandmother Malignant tumor of breast [email or web address] Not available 02/12 14:48:35 Medical History Condition Response Allergies (Food, seasonal, environmental ) Y Other N Drug/Latex Allergies/Reactions Y Breast Cancer N Blood Transfusion N Lung Disease N Dermatologic Disorders N Defects or Inherited Disease N Breast Problem Y Gestational Diabetes N Hematologic disorders N Anesthesia Complications N History of STI N Deep Vein Thrombosis N Polycystic ovary syndrome N Anxiety Disorder N Autoimmune disease Y Arthritis N Polyps N Infertility N History of abnormal pap N Acid Reflux (GERD) N Cancer N Varicosities N Stroke N Neurologic/Epilepsy N Endometriosis N High Cholesterol N Headaches N Fibromyalgia N Kidney Disease N Heart Problems N Thyroid Problems N Kidney or Bladder Problems N GI Problems N Eating Disorder [...] SNOMED-CT Code Diagnosis ICD10 Code Diagnosis Note [id number] Matti Orozco MD [facility] [address] [address] 01/06/2020 17:12:34 01/06/2020 18:15:17 Gynecologic examination 82670566 Z01.419 This patient is here for her [...] l - [ ordered] Pap - today [id number] Matti Orozco MD [facility] [address] [address] 02/01/2021 17:19:59 02/01/2021 18:11:47 Gynecologic examination 03535012 Z01.419 This patient is here for her [...] l - [ ordered] Pap - today [id number] Matti Orozco MD [facility] [address] [address] 09/16/2021 09:28:40 09/16/2021 10:07:46 Abnormal uterine bleeding 7891987394 9100 N93.9 Menorrhagia 763217613 N9 2.0 Accidents, getting blood on her bedding and clothing. Dysmenorrhea 364176915 N 94.6 [id number] Matti Orozco MD [facility] [address] [address] 09/20/2021 16:52:25 09/20/2021 17:48:30 Abnormal uterine bleeding 7900428272 9100 N93.9 N94.6 [id number] Matti Orozco MD [facility] [address],[place] [address] 09/27/2021 17:11:17 09/28/2021 15:41:45 Uterine leiomyoma 59320405 D25.9 Menorrhagia 722503527 N9 2.0 This patient is a 46-year-ol d female with severe menorrhagi a and large uterine fibroids. Her bleeding is profound. She has accidents. She gets blood on her bedding clothing. It affects her quality of life in her [facility] ip. We discussed treatment options today. We [...] the surgery for the informed consent process. [id number] Matti Orozco MD [facility] [address],[place] [address] 12/01/2021 17:10:41 12/01/2021 18:06:56 Menorrhagia 096265579 N92.0 Uterine leiomyoma 208728 05 D25.9 this patient is a 46-year-ol d female with a fibroid uterus and severe menorrhagi a. We have agreed to perform total laparoscop ic hysterecto my and bilateral salpingect estefani. She understand s the risks, benefits, and alternativ es. She has completed the informed consent process and is ready to proceed. [id number] Matti Orozco MD [facility] [address] [address] 12/10/2021 10:32:23 12/10/2021 10:33:37 [id number] Matti Orozco MD [facility] [address] [address] 12/14/2021 11:28:58 12/15/2021 16:06:17 Family history of diabetes mellitus 099077470 Z83.3 Postoperative care 60704 9107 Z48.89 This patient is a 46-year-ol d female presents for postop follow-up. She is 1 week postop from a total laparoscop ic hysterecto my and bilateral salpingect estefani. She has no complaints . Her incisions are clean dry and intact she is recovering normally. She will follow-up as needed [id number] Matti Orozco MD [facility] [address] [address] 01/04/2022 14:48:24 01/05/2022 18:48:32 Obesity 090137758 E66.9 This patient is a 46-year-ol d [...] instructio ns. She return in 1 month. [id number] Matti Orozco MD [facility] [address] [address] 02/01/2022 15:14:48 02/01/2022 16:18:30 Obesity 934196276 E66.9 This patient is a 46-year-ol d [...] ce. More than 50% was counseling . [id number] Matti Orozco MD [facility] [address],[place] [address] 04/12/2022 16:43:48 04/13/2022 15:13:06 Obesity 110091297 E66.9 This patient is a 46-year-ol d [...] She feels like she lost a month [id number] Matti Orozco MD [facility] [address],[place] [address] 05/10/2022 14:44:33 05/10/2022 18:24:30 Obesity 128563128 E66.9 this patient is a 46-year-ol d [...] the medication . Talked about lifestyle changes. [id number] Matti Orozco MD [facility] [address],[place] [address] 06/07/2022 15:17:56 06/07/2022 16:21:42 Obesity 981863664 E66.9 This patient is a 46-year-ol d [...] about alternativ e to that medication . [id number] Matti Orozco MD [facility] [address],[place] [address] 07/12/2022 10:19:01 07/12/2022 11:13:00 Obesity 066054563 E66.9 This patient is a 46-year-ol d [...] to keep her dose at 7.5 mg [id number] Matti Orozco MD [facility] [address] [address] 08/16/2022 14:18:35 08/16/2022 15:16:51 Obesity 185362678 E66.9 47-year-ol d female who presents for [...] mg. She will follow-up in 1 month. [id number] Matti Orozco MD [facility] [address] [address] 09/14/2022 16:57:24 09/15/2022 15:10:51 Nausea and vomiting 76953619 R11.2 Obesity 122305155 E66.9 47-year-ol d female who presents for [...] of the new G LP 1 agonist. [id number] Matti Orozco MD [facility] [address],[place] [address] 10/11/2022 15:14:50 10/11/2022 17:06:45 Obesity 326577754 E66.9 47-year-ol d female who presents for [...] face-to-fa ce. More than 50% was counseling [id number] Matti Orozco MD [facility] [address] [address] 11/03/2022 17:52:23 11/04/2022 09:43:52 Obesity 945503892 E66.9 47-year-ol d female who presents for [...] face-to-fa ce. More than 50% was counseling [id number] YUDI Giraldo [facility] [address] [address] 12/15/2022 16:41:03 12/15/2022 18:01:46 Gynecologic examination 48493415 Z01.419 WWEhx of hyst, BS for fibroids/A [...] the fall and she could obtain at [facility] or [facility] care clinic. Also to obtain TDap [...] or respond to this email. Vaginal lesion 581483160 N94.89 [id number] Matti Orozco MD [facility] [address] [address] 01/02/2023 16:20:49 01/03/2023 09:20:50 Polyp of vaginal wall 338437211 N84.2 47-year-ol d female who presents for [...] Wall, proximal and on the left side. [id number] Matti Orozco MD [facility] [address] [address] 01/24/2023 09:41:32 01/24/2023 10:35:33 Obesity 367160363 E66.9 47-year-ol d female who presents for [...] face-to-fa ce. More than 50% was counseling [id number] Matti Orozco MD [facility] [address] [address] 06/01/2023 16:58:39 06/01/2023 17:55:47 Obesity 993857788 E66.9 47-year-ol d female who presents for [...] face-to-fa ce. More than 50% was counseling [id number] YUDI Giraldo [facility] [address] [address] 02/13/2024 13:57:26 02/13/2024 15:10:56 Gynecologic examination 58973035 Z01.419 WWEhx of hyst, BS for fibroids/A [...] answered. Screening for malignant neoplasm of breast 028674622 Z12.39 Breast lump 05260839 N63 .0 Health Concerns Section Related Observation LastModified by Organization Detai ls LastModified Time None Recorded Concern Status LastModified by Organization Details LastModified Time None Recorded Advance Directives Directive N: Payers Insurance Date Sequence Insurance Name Policy Number Policy Kang Covered Member ID Kang Member ID Guarantor Name 02/13/2024 2 () Gayle Jorge [id number] Gayle Jorge 09/15/2021 2 [employer] [id number] Fidel Jorge [id number] Gayle Jorge 02/10/2024 1 [facility] [id number] Gayle Jorge [id number] Gayle Jorge Notes Date Note Type Note [...] schedule mammogram YUDI Giraldo [address], [place], [address], [facility] 12/15/2022 17:53:30 01/02/2023 text/html 47-year-old selina [...] side. Matti Orozco MD [address], [place], [address], [facility] 01/02/2023 20:54:04 01/24/2023 text/html 47-year-old selina [...] her lifestyle changes. we spent 20 minutes toet-zb-bxrg. More than 50% was counseling Matti Orozco MD [address], [place], [address], [facility] 01/24/2023 10:33:30 06/01/2023 text/html 47-year-old selina [...] her lifestyle changes. we spent 20 minutes scmo-wo-alli. More than 50% was counseling Matti Orozco MD [address], [place], [address], [facility] 06/01/2023 17:39:22 02/13/2024 text/html Annual GYNReport [...] done 2022 YUDI Giraldo [address], [place], [address], [facility] 02/13/2024 15:18:57 OBGyn Episode Ob Episode Information Episode Created Date Number of Fetuses Patient Bloodtype Patient rh Status Prepregnancy Weight lbs Domestic Partner Domestic Partner Phone Father Name Music Box Mechanic Status 01/06/20 20 1 CLOSED Fetus Data [...] Domestic Partner Domestic Partner Phone Father Name Music Box Mechanic Status 01/06/20 20 1 CLOSED Fetus Data [...]
== END 2024-09-11 15:57 | disposition home or self-care (01) ==
DX: Z01.818 Encounter for other preprocedural examination (principal); R94.31 Abnormal electrocardiogram [ECG] [EKG]
CPT/HCPCS: 93005

== ENCOUNTER 2024-10-29 15:57 | Outpatient (CLI) | payer OTHER, SELFPAY ==
--- OUTSIDE RECORDS SUMMARY | 2017-03-15 01:00 | XMS_ITS | Encounter Summary ---
Author Organization [facility] Healthcare Address [address] [place] [address] Care Team Providers Care Auto Suspension And Steering Mechanic Name Role Phone Unavailable Primary Care Provider Unavailabl e Reason for Visit * Diagnostic Imaging (Routine) - Pending Review Specialty Diagnoses / Procedures Referred By Sharif savage Referred To Contact Procedures Breast Imaging Screening Outside Reference Mindi De Dios NP Phone: tel: fax: Referral ID Status Reason Start Date Expiration Date V isits Requested Visits Authorized [id number] Pending Review 03/19/2024 04/18/2025 1 1 Encounter Details Date Type Department Care Team (Late st Contact Info) Description 03/15/2017 Hospital Encounter [facility]iology [facility] [address] [place] [id number] Social History Tobacco Use Types Packs/Day Years Used Date Smoking Tobacco: Never Alcohol Use Standard Drinks/Week Comments No 0 (1 standard drink = 0.6 oz pur e alcohol) Comments Unknown Sex and Gender Information Value Date Recorded Sex Assigned at Not on file Legal Sex Female 2:38 AM WINDOWS SERVER ENGINEER Gender Identity Not on file Sexual Orientation Not on file documented as of this encounter Plan of Treatment Not on file documented as of this encounter Procedures Procedure Name Priority Date/Time Associated Diagnosis Comments BREAST IMAGING MG SCREENING OUTSIDE REFERENCE Routine 03/15/2017 12:00 AM WINDOWS SERVER ENGINEER documented in this encounter Results * Breast Imaging Screening Outside Reference (03/15/2017 12:00 AM WINDOWS SERVER ENGINEER) Impressions RAD_MAMMO[facility] - 03/19/2024 7:56 PM WINDOWS SERVER ENGINEER These images are for Reference purposes only and have not been reviewed by [facility] Radiology. There will be no report generated by a [facility] Radiologist. Narrative [facility]MO[facility] - 03/19/2024 7:56 PM WINDOWS SERVER ENGINEER EXAMINATION: Images For Reference Purposes Only us Mindi De Dios NP IMG MAMMO PROCEDURES Final Res ult [facility] documented in this encounter Visit Diagnoses Not on filedocumented in this encounter
--- OUTSIDE RECORDS SUMMARY | 2020-02-04 01:00 | XMS_ITS | Encounter Summary ---
Author Organization [facility] Healthcare Address [address] [place] [address] Care Team Providers Care Call Taker Name Role Phone Unavailable Primary Care Provider Unavailabl e Reason for Visit * Diagnostic Imaging (Routine) - Pending Review Specialty Diagnoses / Procedures Referred By Sharif savage Referred To Contact Procedures Breast Imaging Screening Outside Reference Mindi De Dios NP Phone: tel: fax: Referral ID Status Reason Start Date Expiration Date V isits Requested Visits Authorized [id number] Pending Review 03/19/2024 04/18/2025 1 1 Encounter Details Date Type Department Care Team (Late st Contact Info) Description 02/04/2020 Hospital Encounter [facility]iology [facility] [address] [place] [phone] Social History Tobacco Use Types Packs/Day Years Used Date Smoking Tobacco: Never Alcohol Use Standard Drinks/Week Comments No 0 (1 standard drink = 0.6 oz pur e alcohol) Comments Unknown Sex and Gender Information Value Date Recorded Sex Assigned at Not on file Legal Sex Female 2:38 AM WIRE COATING MACHINE OPERATOR Gender Identity Not on file Sexual Orientation Not on file documented as of this encounter Plan of Treatment Not on file documented as of this encounter Procedures Procedure Name Priority Date/Time Associated Diagnosis Comments BREAST IMAGING MG SCREENING OUTSIDE REFERENCE Routine 02/04/2020 12:00 AM WIRE COATING MACHINE OPERATOR documented in this encounter Results * Breast Imaging Screening Outside Reference (02/04/2020 12:00 AM WIRE COATING MACHINE OPERATOR) Impressions RAD_M[facility]MO[facility] - 03/19/2024 7:56 PM WIRE COATING MACHINE OPERATOR These images are for Reference purposes only and have not been reviewed by [facility] Radiology. There will be no report generated by a [facility] Radiologist. Narrative [facility]MAMMO[facility] - 03/19/2024 7:56 PM WIRE COATING MACHINE OPERATOR EXAMINATION: Images For Reference Purposes Only us Mindi De Dios NP IMG MAMMO PROCEDURES Final Res ult [facility] documented in this encounter Visit Diagnoses Not on filedocumented in this encounter
--- NOTE | 2024-10-29 | ECHO_ITS ---
Patient Info Name: Gayle Jorge Age: 49 years : 1975 Gender: Female Ht: 65 in Wt: 198 lbs BSA: 2.06 m2 HR: 60 bpm BP: 119 / 68 mmHg Heart Rhythm: Sinus Rhythm Technical Quality: Good Exam Date: 10/29/2024 4:19 PM Patient Status: unknown Admit Date: 10/29/2024 Exam Type: CA echo doppler color flow Complete two-dimensional, color flow and Doppler transthoracic echocardiogram is performed. Balancer: Hannah Dunham Attending Provider: Kristen Mcgarry Summary 1. Complete two-dimensional, color flow and Doppler transthoracic echocardiogram is performed. 2. Normal left ventricular size with normal systolic and diastolic function. 3. Normal right ventricle. 4. Mild tricuspid insufficiency velocities suggest mildly elevated pulmonary artery pressure. 5. Small/trivial circumferential pericardial effusion. 6. Compared with echocardiogram from July of 2021 the findings are unchanged. Left Ventricle Left ventricular chamber dimension is normal. Left ventricular systolic function is normal, estimated at 55-60. The left ventricular diastolic function is normal. Right Ventricle Right ventricular chamber dimension is normal. Left Atria Left atrial chamber dimension is normal. Right Atria Right atrial chamber dimension is normal. Aortic Valve The aortic valve is normal. Pulmonic Valve The pulmonic valve is normal. There is trace pulmonic regurgitation. Mitral Valve The mitral valve has normal leaflets. Tricuspid Valve The tricuspid valve leaflets are normal. There is mild tricuspid valve regurgitation. Mild pulmonary hypertension, estimated pulmonary arterial systolic pressure is 49 mmHg. Pericardium/Pleural There is small circumferential pericardial effusion. Aorta The aortic root size at the sinus of Valsalva is normal. Left Ventricular Outflow Tract Name Value Normal LVOT 2D LVOT Diameter 2.2 cm LVOT Doppler LVOT Peak Velocity 100 cm/s LVOT Peak Gradient 4 mmHg LVOT Mean Gradient 2 mmHg LVOT VTI 25 cm LVOT VTI/AV VTI Ratio 0.6 LVOT Stroke Volume 94 ml LVOT CO 15.6 l/min LVOT CI 7.6 l/min/m2 Pulmonic Valve Name Value Normal PV Doppler PV Peak Velocity 90 cm/s PV Peak Gradient 3 mmHg Mitral Valve Name Value Normal MV Diastolic Function MV E Peak Velocity 115 cm/s MV A Peak Velocity 65 cm/s MV E/A 1.8 MV Decel Time (PW) 234 ms MV Annular TDI MV E/e' (Septal) 10.7 MV E/e' (Lateral) 8.0 MV E/e' (Average) 9.3 Tricuspid Valve Name Value Normal TV Regurgitation Doppler TR Peak Velocity 314 cm/s TR Peak Gradient 39 mmHg Estimated PAP/RSVP RA Pressure 10 mmHg <=5 PA Systolic Pressure 49 mmHg <36 RV Systolic Pressure 49 mmHg <36 TV Annular TDI TV Lateral Bonnie s' Velocity 12.4 cm/s >=9.5 Aorta Name Value Normal Ascending Aorta Ao Root Diameter (MM) 2.8 cm Ao Root Diam Index (MM) 1.3 cm/m2 Aortic Valve Name Value Normal AV Doppler AV Peak Velocity 162 cm/s AV Peak Gradient 10 mmHg AV Mean Gradient 6 mmHg AV VTI 40 cm AV Area (Cont Eq VTI) 2.4 cm2 >=3.0 AV Area (Cont Eq Daniel) 2.4 cm2 AV DI (Daniel) 0.62 AV Regurgitation 2D LVOT Area 3.8 cm2 Ventricles Name Value Normal LV Dimensions 2D/MM IVS Diastolic Thickness (2D) 0.7 cm 0.6-1.0 LVID Diastole (2D) 5.3 cm 3.8-5.2 LVIW Diastolic Thickness (2D) 0.9 cm 0.6-0.9 LVID Systole (2D) 3.3 cm 2.2-3.5 LVOT Diameter 2.2 cm LV Mass (2D Cubed) 150.99 g 67.00-162.00 LV Mass Index (2D Cubed) 73 g/m2 43-95 Relative Wall Thickness (2D) 0.33 <=0.42 LV Fractional Shortening/Ejection Fraction 2D/MM LV Fractional Shortening (2D) 37 % 27-45 LV EF (2D Teichholz) 67 % LV Diastolic Volume (4C MOD) 127 ml LV EF (4C MOD) 63 % LV Diastolic Volume (2C MOD) 162 ml LV EF (2C MOD) 78 % LV Diastolic Volume (BP MOD) 144 ml 46-106 LV Diastolic Volume Index (BP MOD) 70 ml/m2 29-61 LV Systolic Volume (BP MOD) 42 ml 14-42 LV Systolic Volume Index (BP MOD) 21 ml/m2 8-24 LV EF (BP MOD) 71 % 54-74 LV Diastolic Length (4C) 8.5 cm LV Systolic Length (4C) 7.3 cm LV Stroke Volume (4C MOD) 80 ml RV Dimensions 2D/MM RVID Diastole (2D) 3.8 cm 2.1-3.5 Atria Name Value Normal LA Dimensions LA Dimension (MM) 3.3 cm 2.7-3.8 LA Volume (4C A-L) 72 ml LA Volume (BP A-L) 73 ml RA Dimensions RA Systolic Major Essex Length (4C) 5.3 cm 2.2-2.8 RA Area (4C) 17.0 cm2 <=18.0 Report Signatures
--- OUTSIDE RECORDS SUMMARY | 2024-10-29 15:59 | XMS_ITS | Clinical Summary ---
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 Immunizations [...] ents: failed induction scleroderma, IUGR, RPL Scleroderma Family History Medical History Relation Name Comments [...] on file Legal Sex Female 2:38 AM PEDIATRIC DERMATOLOGIST Gender Identity Not on file Sexual Orientation Not on file Obstetrics History Last Filed Vital Signs Vital Sign Reading Time Taken Comments Blood Pressure 136/72 09/05/2012 11:55 AM CDT Pulse - - Temperature - - Respiratory Rate - - Oxygen Saturation - - Inhaled Oxygen Concentration - - Weight 87.5 kg (192 lb 12.8 oz) 04/09/2024 8:31 AM PEDIATRIC DERMATOLOGIST Height 165.1 cm (5' 5) 04/09/2024 8:31 AM PEDIATRIC DERMATOLOGIST Body Mass Index 32.08 04/09/2024 8:31 AM PEDIATRIC DERMATOLOGIST Plan of Treatment Health Maintenance Due Date Last Done Comments Breast Cancer Screening-Mammogram 1975 Colon Cancer Screening-Colonoscopy 1975 Depression Screening 1975 Hepatitis C Screening 1975 DTaP/Tdap/Td Vaccine (1 - Tdap) 05/16/1987 Hepatitis B Screening 1994 Regular Well Visit/Exam 18-64 1994 Zoster Vaccine (1 of 2) 05/16/1995 Covid-19 Vaccine (3 - Pfizer risk series) 08/08/2020 07/11/2020, 06/20/2020 Influenza Vaccine (#1) 2024 Pneumococcal vaccine <65 Completed 07/20/2022 Insurance [facility] Address: [address] [address] [place] [address] [facility] [address] [facility] CHOICE PLUS [facility] HMO/PPO Address: [address] [address] [place] [address] [facility] [place] [address] Care Teams Outside Sales Consultant Relationship Specialty Start Date End Date Ame Farias NP [address] [place] [address] PCP - General Obstetrics and Gynecology 02/29/24
--- OUTSIDE RECORDS SUMMARY | 2024-10-29 15:59 | XMS_ITS | Encounter Summary ---
Author Organization [facility] Address [address] [place] [address] Care Team Providers Care Worm Farmer Name Role Phone Mickey Gillespie PA-C Primary Care Provide r Rosalio Rankin MD Unavailable [phone] Kristen Mcgarry MD Unavailable [phone] Encounter Details Date Type Department Care Team (Late st Contact Info) Description 07/10/2024 Telephone [facility] - Pulmonology [facility], [place] [address] Rolando Kathleen MD [address] [place] [address] DIV OF PULMONARY/[place] [address] Social History Tobacco Use Types [...] on file Legal Sex Female 9:53 AM HYDRODYNAMICIST Gender Identity Not on file Sexual Orientation [...] Provider: Dr. Rolando Kathleen Reason for Call: [facility] is calling to have Dr. Kathleen/Dr. Ortiz sign papers for Gayle Jorge.Please sign and fax back Any questions call [facility] [place] [phone] Ext [phone] Patient Call Back Number: [phone] documented in this encounter Plan of Treatment Upcoming Encounters Date Type Department Care Team (Late st Contact Info) Description 11/08/2024 9:00 AM CDT Office Visit [facility] - Pulmonology [address] [place] [address], [place] [phone] Rolando Kathleen MD [address] [place] [address] 2L DIV OF PULMONARY/[place] [phone] 02/11/2025 8:30 AM HYDRODYNAMICIST Office Visit [facility] - Pulmonology [address] [place] [phone] Rolando Kathleen MD [address] [place] [address] 2L DIV OF PULMONARY/[place] [address] 02/11/2025 3:00 PM HYDRODYNAMICIST Office Visit [facility] - Rheumatology [address] [place] [phone] Kristen Mcgarry MD [address] [place] [address] 2L DIV [place] [phone] documented as of this encounter Visit Diagnoses Not on filedocumented in this encounter Care Teams Worm Farmer Relationship Specialty Start Date End Date Mickey Gillespie PA-C [address] [facility] [address] [place] [address] PCP - General Physician Customer Solutions Supervisor 09/20/21 Rosalio Rankin MD [address] [facility] 200 [place] [address] Cardiology 09/20/21 Kristen Mcgarry MD [address] [place] [address] 2L [place] [phone] Activity Aide Rheumatology 10/04/24 documented as of this encounter
--- OUTSIDE RECORDS SUMMARY | 2024-10-29 15:59 | XMS_ITS | Encounter Summary ---
Author Organization [facility] Address [address] [facility] [place] [address] Care Team Providers Care Custom Wood Stair Builder Name Role Phone Mickey Gillespie PA-C Primary Care Provide r Rosalio Rankin MD Unavailable [phone] Kristen Mcgarry MD Unavailable [phone] Reason for Visit * Reason Onset Date Comments Reschedule Appointment 03/30/2023 Encounter Details Date Type Department Care Team (Late st Contact Info) Description 03/30/2023 Telephone [facility] - Centralized Scheduling [address] [place] [address] Rolando Kathleen MD [address] OF PULMONARY/[place] [address] Reschedule Appointment Social History Tobacco [...] on file Legal Sex Female 9:53 AM PROTECTIVE SIGNAL OPERATIONS SUPERVISOR Gender Identity Not on file Sexual Orientation Not on file documented as of this encounter Miscellaneous Notes * Telephone Encounter - Brionna Partida 03/30/2023 10:12 AM CST I rescheduled Gayle's 04/04/[address] Kathleen to 05/09/23. Gayle stated that this appointment has been rescheduled multiple times and needs to be seen at an earlier date. I have also added this appointment to the wait list. ECTIVE SIGNAL OPERATIONS SUPERVISOR documented in this encounter Plan of Treatment Upcoming Encounters Date Type Department Care Team (Late st Contact Info) Description 11/08/2024 9:00 AM CDT Office Visit [facility] - Pulmonology [address] [place] [phone] Rolando Kathleen MD [address] [place] [address] 2L DIV OF PULMONARY/[place] [phone] 02/11/2025 8:30 AM PROTECTIVE SIGNAL OPERATIONS SUPERVISOR Office Visit [facility] - Pulmonology [address] [place] [phone] Rolando Kathleen MD [address] [place] [address] 2L DIV OF PULMONARY/[place] [address] 02/11/2025 3:00 PM PROTECTIVE SIGNAL OPERATIONS SUPERVISOR Office Visit [facility] - Rheumatology [address] [place] [phone] Kristen Mcgarry MD [address] [place] [address] 2L [place] [address] documented as of this encounter Visit Diagnoses Not on filedocumented in this encounter Care Teams Custom Wood Stair Builder Relationship Specialty Start Date End Date Mickey Gillespie PA-C [address] [facility] [address] [place], [place] [phone] PCP - General Physician Aircraft Mechanic Structures 09/20/21 Rosalio Rankin MD 1027 [facility] 200 [place] [address] Cardiology 09/20/21 Kristen Mcgarry MD [address] [place] [phone] Processes Chemical Design Engineer Rheumatology 10/04/24 documented as of this encounter
--- OUTSIDE RECORDS SUMMARY | 2024-10-29 15:59 | XMS_ITS | Clinical Summary ---
Author Organization [facility] [employer] Address [address] [place] [address] Care Team Providers Care Lay Out Worker Name Role Phone Mickey Gillespie PA-C Primary Care Provide r Rosalio Rankin MD Unavailable [phone] Kristen Mcgarry MD Unavailable [phone] Source Comments [facility],non-owned Affiliates and Associated Physician Practices is amultiple site organization consisting of ambulatory clinics and hospital sitesin [place], [place], [place] and [place]. This disclosure is being madepursuant to the Care Everywhere program and may not contain all information available regarding this patient. Last updated 17.[facility] [employer] Allergies Active Allergy Reactions Criticality Noted Date [...] 1 tablet by mouth once daily Active tirzepatide (Mounjaro) 15 MG/0.5ML injection Inject by subcutaneous route for 28 days. 04/25/19 25 Active NIFEdipine CR osmotic 24hr (Procardia-XL) 60 MG tablet Take 1 (one) tablet by mouth once daily 90 tablet 3 08/29/19 25 Active mycophenolate (Cellcept) 500 MG tablet Take 3 (three) tablets by mouth 2 times daily 222 tablet 8 08/29/19 25 Active hydroxychloroq uine (Plaquenil) 200 MG tablet TAKE 2 TABLETS BY MOUTH ONCE DAILY 180 tablet 3 10/05/19 25 Active hydroxychloroq uine (Plaquenil) 200 MG tablet Take 2 (two) tablets by mouth once daily 90 tablet 3 03/27/19 25 025 Discontinued Active Problems Problem Noted Date Diagnosed Date Pericardial effusion without cardiac tamponade 0 05/09/2023 HTN (hypertension), benign 09/20/2021 Pulmonary hypertension 09/20/2021 Progressive systemic sclerosis 08/10/2017 Encounter for long-term (cur rent) use of high-risk medication 08/10/2017 Encounter for therapeutic drug monitoring 2017 Encounters Date Type Department Care Team Description 10/18/2024 Orders Only [facility] - Rheumatology [address] [place] [phone] Kristen Mcgarry MD Progressive systemic sclerosis (HCC); Encounter for long-term (current) use of high-risk medication; Encounter for therapeutic drug monitoring 10/11/2024 Telephone [facility] - Rheumatology [address] [place] [phone] Kristen Mcgarry MD Follow-up 10/03/2024 Refill [facility] - Rheumatology [address] [place] [phone] Kristen Mcgarry MD Refill Request 09/26/2024 Telephone [facility] - Centralized Scheduling [facility] [place] [phone] Kristen Mcgarry MD Surgical Followup 09/09/2024 Telephone [facility] - Rheumatology [address] [place] [phone] Kristen Mcgarry MD Order 09/04/2024 Telephone [facility] - Pulmonology [address] [facility], [facility] [place] [address] Carmina Gresham RN Future Appointment (/) 08/28/2024 2:20 PM CDT Office Visit [facility] - Rheumatology [address] [facility], [facility] [place] [phone] Kristen Mcgarry MD Progressive systemic sclerosis (HCC) (Primary Dx); Encounter for long-term (current) use of high-risk medication; Encounter for therapeutic drug monitoring; ILD (interstitial lung disease) (HCC) 08/28/2024 Travel from Last 3 Months Immunizations Immunization Administration Dates Next Due Covid Wirama primary monoval ent 12+ yr 0.3mL Purple [...] on file Legal Sex Female 9:53 AM CURRICULUM FACILITATOR Gender Identity Not on file Sexual Orientation [...] Visit [facility] - Pulmonology [address] [place] [address], [place] [address] Rolando Kathleen MD [address] [place] [address] 2L DIV OF PULMONARY/[place] [phone] 02/11/2025 8:30 AM CURRICULUM FACILITATOR Office Visit [facility] - Pulmonology [address] [place] [address], [place] [address] Rolando Kathleen MD [address] [place] [address] 2L DIV OF PULMONARY/[place] [phone] 02/11/2025 3:00 PM CURRICULUM FACILITATOR Office Visit [facility] - Rheumatology [address] [place] [phone] Kristen Mcgarry MD [address] [place] [address] 2L [place] [phone] Health Maintenance Due Date Last Done Comments [...] - 08/24/2024 7:09 AM CDT Performed at: - [facility] [address] [id number] Locomotive Mechanic: Jarad Hooper PhD, Phone: [phone] Kristen Mcgarry MD LAB - CHEMISTRY ORDERA BLES Final Result Performing Organization Address [facility]/ZIP Co de Phone Number [facility] INSURANCE BILL [address] [place] [address] * (ABNORMAL) ERYTHROCYTE SEDIMENTATION RATE (08/23/2024 11:39 AM CDT) Pathologist [facility] Erythrocyte Sedimentation Rate Westergren 33(H) 0 - 32 mm/hr [facility] INSURANCE BILL Blood BLOOD SPECIMEN / Unknown 08/23/2024 11:39 AM CDT 08/23/2024 Narrative [facility] INSURANCE BILL - 08/24/2024 7:09 AM CDT Performed at: [facility] [address] [id number] Locomotive Mechanic: Jarad Hooper PhD, Phone: [phone] Kristen Mcgarry MD LAB - HEMATOLOGY ORDER STAR Final Result Performing Organization Address [facility] de Phone Number [facility] INSURANCE BILL [address] [place] [address] * CBC WITH DIFFERENTIAL (08/23/2024 11:39 AM CDT) WBC 6.8 3.4 - 10.8 x10E3/uL [facility] [...] 7:09 AM CDT Performed at: [address] [id number] Locomotive Mechanic: Jarad Hooper PhD, Phone: [phone] us Kristen Mcgarry MD LAB - HEMATOLOGY ORDER STAR Final Result [facility] INSURANCE BILL [address] [place] [address] * (ABNORMAL) COMPREHENSIVE METABOLIC PANEL (08/23/2024 11:39 AM CDT) [facility] Glucose 66(L) 70 - 99 mg/dL [facility] [...] - 08/24/2024 7:09 AM CDT Performed at: - [facility] [id number] Locomotive Mechanic: Jarad Hooper PhD, Phone: [phone] us Kristen Mcgarry MD LAB - CHEMISTRY ORDERA BLES Final Result Performing Organization Address City/State/[facility] Co de Phone Number [facility] INSURANCE BILL [address] [place] [address] from Last 3 Months Insurance [facility] [address] * Guarantor: AMARJIT MONTES DE OCA Account Type Relation to Patient Date of Phone Billing Address Personal/Family Other Advance Directives * Full Code (Latest Code Status on File) Date Activated Date Inactivated Comments 09/27/2021 8:49 AM 09/27/2021 10:22 AM Care Teams Lay Out Worker Relationship Specialty Start Date End Date Mickey Gillespie PA-C [address] [place] [address] PCP - General Physician Jointer Submarine Cable 09/20/21 Rosalio Rankin MD [address] [facility] 200 [place] [address] Cardiology 09/20/21 Kristen Mcgarry MD [address] [place] [phone] Waiter/Waitress Tourist Class Rheumatology 10/04/24
== END 2024-10-29 15:58 | disposition home or self-care (01) ==
LOC: ANHCARD 15:58
PROVIDERS: PCP Nurse Practitioner; Visit Provider Internal Medicine Rheumatology
DX: Z09 Encounter for follow-up examination after completed treatment for conditions other than malignant neoplasm (principal); I36.1 Nonrheumatic tricuspid (valve) insufficiency
CPT/HCPCS: 93306

== ENCOUNTER 2024-10-31 15:59 | Outpatient (CLI) | payer OTHER, SELFPAY ==
--- OUTSIDE RECORDS SUMMARY | 2017-03-15 01:00 | XMS_ITS | Encounter Summary ---
Author Organization [facility] Healthcare Address [address] [place] [address] Care Team Providers Care Charge Gang Weigher Name Role Phone Unavailable Primary Care Provider Unavailabl e Reason for Visit * Diagnostic Imaging (Routine) - Pending Review Specialty Diagnoses / Procedures Referred By Sharif savage Referred To Contact Procedures Breast Imaging Screening Outside Reference Mindi De Dios NP Phone: tel: fax: Referral ID Status Reason Start Date Expiration Date V isits Requested Visits Authorized [id number] Pending Review 03/19/2024 04/18/2025 1 1 Encounter Details Date Type Department Care Team (Late st Contact Info) Description 03/15/2017 Hospital Encounter [facility] [address] [place] [id number] Social History Tobacco Use Types Packs/Day Years Used Date Smoking Tobacco: Never Alcohol Use Standard Drinks/Week Comments No 0 (1 standard drink = 0.6 oz pur e alcohol) Comments Unknown Sex and Gender Information Value Date Recorded Sex Assigned at Not on file Legal Sex Female 2:38 AM TRADER Gender Identity Not on file Sexual Orientation Not on file documented as of this encounter Plan of Treatment Not on file documented as of this encounter Procedures Procedure Name Priority Date/Time Associated Diagnosis Comments BREAST IMAGING MG SCREENING OUTSIDE REFERENCE Routine 03/15/2017 12:00 AM TRADER documented in this encounter Results * Breast Imaging Screening Outside Reference (03/15/2017 12:00 AM TRADER) Impressions RAD_MAMMO_[facility] - 03/19/2024 7:56 PM TRADER These images are for Reference purposes only and have not been reviewed by [facility] Radiology. There will be no report generated by a [facility] Radiologist. Narrative RAD_MAMMO_[facility] - 03/19/2024 7:56 PM TRADER EXAMINATION: Images For Reference Purposes Only us Mindi De Dios NP IMG MAMMO PROCEDURES Final Res ult [facility] documented in this encounter Visit Diagnoses Not on filedocumented in this encounter
--- OUTSIDE RECORDS SUMMARY | 2020-02-04 01:00 | XMS_ITS | Encounter Summary ---
Author Organization [facility] Healthcare Address [address] [place] [address] Care Team Providers Care Cellophane Tester Name Role Phone Unavailable Primary Care Provider Unavailabl e Reason for Visit * Diagnostic Imaging (Routine) - Pending Review Specialty Diagnoses / Procedures Referred By Sharif savage Referred To Contact Procedures Breast Imaging Screening Outside Reference Mindi De Dios NP Phone: tel: fax: Referral ID Status Reason Start Date Expiration Date V isits Requested Visits Authorized [id number] Pending Review 03/19/2024 04/18/2025 1 1 Encounter Details Date Type Department Care Team (Late st Contact Info) Description 02/04/2020 Hospital Encounter [facility]iology [facility] [address] [place] [phone] Social History Tobacco Use Types Packs/Day Years Used Date Smoking Tobacco: Never Alcohol Use Standard Drinks/Week Comments No 0 (1 standard drink = 0.6 oz pur e alcohol) Comments Unknown Sex and Gender Information Value Date Recorded Sex Assigned at Not on file Legal Sex Female 2:38 AM HOME IMPROVEMENT INSTALLER Gender Identity Not on file Sexual Orientation Not on file documented as of this encounter Plan of Treatment Not on file documented as of this encounter Procedures Procedure Name Priority Date/Time Associated Diagnosis Comments BREAST IMAGING MG SCREENING OUTSIDE REFERENCE Routine 02/04/2020 12:00 AM HOME IMPROVEMENT INSTALLER documented in this encounter Results * Breast Imaging Screening Outside Reference (02/04/2020 12:00 AM HOME IMPROVEMENT INSTALLER) Impressions RAD_MAMMO[facility] - 03/19/2024 7:56 PM HOME IMPROVEMENT INSTALLER These images are for Reference purposes only and have not been reviewed by [facility] Radiology. There will be no report generated by a [facility] Radiologist. Narrative [facility]MAMMO[facility] - 03/19/2024 7:56 PM HOME IMPROVEMENT INSTALLER EXAMINATION: Images For Reference Purposes Only us Mindi De Dios NP IMG MAMMO PROCEDURES Final Res ult [facility] documented in this encounter Visit Diagnoses Not on filedocumented in this encounter
--- NOTE | ~2024-10-31 | XR_ITS ---
XR chest 2V 10/31/2024 16:20 Indication: PA and lateral views of the chest Procedure: 2 view chest Comparison: Comparison to multiple prior studies sequentially, with oldest reviewed study dated 04/21/2021. Findings: Stable chronic interstitial lung disease involving the lower lungs in the left midlung. No significant change from prior studies. No acute osseous abnormality. There are cholecystectomy clips. Impression: 1: Stable extensive chronic interstitial lung disease, left greater than right. Reviewed, dictated and finalized at location O. Impression: 1: Stable extensive chronic interstitial lung disease, left greater than right.
--- OUTSIDE RECORDS SUMMARY | 2024-10-31 16:03 | XMS_ITS | Encounter Summary ---
Author Organization [facility] Address [address] [facility] [place] [address] Care Team Providers Care Body Component Engineer Name Role Phone Mickey Gillespie PA-C Primary Care Provide r Rosalio Rankin MD Unavailable [phone] Kristen Mcgarry MD Unavailable [phone] Encounter Details Date Type Department Care Team (Late st Contact Info) Description 07/10/2024 Telephone [facility] - Pulmonology [facility], [place] [address] Rolando Kathleen MD [address] [place] [address] DIV OF PULMONARY/[place] [address] Social History Tobacco Use Types [...] on file Legal Sex Female 9:53 AM DENIAL MANAGEMENT REPRESENTATIVE Gender Identity Not on file Sexual Orientation [...] Provider: Dr. Rolando Kathleen Reason for Call: [facility] is calling to have Dr. Kathleen/Dr. Ortiz sign papers for Gayle Jorge.Please sign and fax back Any questions call [facility] [phone] Ext [phone] Patient Call Back Number: [phone] documented in this encounter Plan of Treatment Upcoming Encounters Date Type Department Care Team (Late st Contact Info) Description 11/08/2024 9:00 AM CDT Office Visit [facility] - Pulmonology [address] [place] [address], [place] [phone] Rolando Kathleen MD [address] [place] [address] 2L DIV OF PULMONARY/[place] [phone] 02/11/2025 8:30 AM DENIAL MANAGEMENT REPRESENTATIVE Office Visit [facility] - Pulmonology [address] [place] [phone] Rolando Kathleen MD [address] [place] [address] 2L DIV OF PULMONARY/[place] [phone] 02/11/2025 3:00 PM DENIAL MANAGEMENT REPRESENTATIVE Office Visit [facility] - Rheumatology [address] [place] [phone] Kristen Mcgarry MD [address] [place] [address] 2L [place] [phone] documented as of this encounter Visit Diagnoses Not on filedocumented in this encounter Care Teams Body Component Engineer Relationship Specialty Start Date End Date Mickey Gillespie PA-C [address] [facility] [address] [place] [address] PCP - General Physician Control And Recovery Combat Rescue 09/20/21 Rosalio Rankin MD 1027 [facility] 200 [place] [address] Cardiology 09/20/21 Kristen Mcgarry MD [address] [place] [address] 2L [place] [phone] Manager Renewable Energy Rheumatology 10/04/24 documented as of this encounter
--- OUTSIDE RECORDS SUMMARY | 2024-10-31 16:04 | XMS_ITS | Encounter Summary ---
Author Organization [facility] Address [address] [place] [address] Care Team Providers Care Honey Blender Name Role Phone Mickey Gillespie PA-C Primary Care Provide r Rosalio Rankin MD Unavailable [phone] Kristen Mcgarry MD Unavailable [phone] Reason for Visit * Reason Onset Date Comments Reschedule Appointment 03/30/2023 Encounter Details Date Type Department Care Team (Late st Contact Info) Description 03/30/2023 Telephone [facility] - Centralized Scheduling [address] [place] [address] Rolando Kathleen MD [address] OF PULMONARY/[place] [address] Reschedule Appointment Social History Tobacco [...] on file Legal Sex Female 9:53 AM REHABILITATION TECH Gender Identity Not on file Sexual Orientation [...] added this appointment to the wait list. BILITATION TECH documented in this encounter Plan of Treatment Upcoming Encounters Date Type Department Care Team (Late st Contact Info) Description 11/08/2024 9:00 AM CDT Office Visit [facility] - Pulmonology [address] [place] [phone] Rolando Kathleen MD [address] [place] [address] 2L DIV OF PULMONARY/[place] [phone] 02/11/2025 8:30 AM REHABILITATION TECH Office Visit [facility] - Pulmonology [address] [place] [phone] Rolando Kathleen MD [address] [place] [address] 2L DIV OF PULMONARY/[place] [address] 02/11/2025 3:00 PM REHABILITATION TECH Office Visit [facility] - Rheumatology [address] [place] [phone] Kristen Mcgarry MD [address] [place] [address] [address] [place] [address] documented as of this encounter Visit Diagnoses Not on filedocumented in this encounter Care Teams Honey Blender Relationship Specialty Start Date End Date Mickey Gillespie PA-C [address] [facility] [address] [place], [place] [phone] PCP - General Physician Sorting And Folding Supervisor 09/20/21 Rosalio Rankin MD [address] [facility] [address] [place] [address] Cardiology 09/20/21 Kristen Mcgarry MD [address] [place] [phone] Farm Helper Rheumatology 10/04/24 documented as of this encounter
--- OUTSIDE RECORDS SUMMARY | 2024-10-31 16:04 | XMS_ITS | Clinical Summary ---
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 Immunizations [...] on file Legal Sex Female 2:38 AM DISTRICT PLANT SUPERINTENDENT Gender Identity Not on file Sexual Orientation Not on file Obstetrics History Last Filed Vital Signs Vital Sign Reading Time Taken Comments Blood Pressure 136/72 09/05/2012 11:55 AM CDT Pulse - - Temperature - - Respiratory Rate - - Oxygen Saturation - - Inhaled Oxygen Concentration - - Weight 87.5 kg (192 lb 12.8 oz) 04/09/2024 8:31 AM DISTRICT PLANT SUPERINTENDENT Height 165.1 cm (5' 5) 04/09/2024 8:31 AM DISTRICT PLANT SUPERINTENDENT Body Mass Index 32.08 04/09/2024 8:31 AM DISTRICT PLANT SUPERINTENDENT Plan of Treatment Health Maintenance Due Date [...] 2024 Pneumococcal vaccine <65 Completed 07/20/2022 Insurance [facility] [place] [address] [facility] [place] [address] Care Teams Wireless Architect Relationship Specialty Start Date End Date Ame Farias NP [address] [place] [address] PCP - General Obstetrics and Gynecology 02/29/24
--- OUTSIDE RECORDS SUMMARY | 2024-10-31 16:04 | XMS_ITS | Clinical Summary ---
Author Organization [facility] Address [address] [facility] [place] [address] Care Team Providers Care Cosmetician Name Role Phone Mickey Gillespie PA-C Primary Care Provide r Rosalio Rankin MD Unavailable [phone] Kristen Mcgarry MD Unavailable [phone] Source Comments [facility],non-owned Affiliates and Associated Physician Practices is amultiple site organization consisting of ambulatory clinics and hospital sitesin [place], [place], [place] and [place]. This disclosure is being madepursuant to the Care Everywhere program and may not contain all information available regarding this patient. Last updated 17.[facility] Allergies Active Allergy Reactions Criticality Noted Date [...] Orders Only [facility] - Rheumatology [address] [place] [phone] Kristen Mcgarry MD Progressive systemic sclerosis (HCC); Encounter for long-term (current) use of high-risk medication; Encounter for therapeutic drug monitoring 10/11/2024 Telephone [facility] - Rheumatology [address] [place] [phone] Kristen Mcgarry MD Follow-up 10/03/2024 Refill [facility] - Rheumatology [address] [place] [phone] Kristen Mcgarry MD Refill Request 09/26/2024 Telephone [facility] - Centralized Scheduling [facility] [place] [phone] Kristen Mcgarry MD Surgical Followup 09/09/2024 Telephone [facility] - Rheumatology [address] [place] [phone] Kristen Mcgarry MD Order 09/04/2024 Telephone [facility] - Pulmonology [address] [facility], [facility] [place] [address] Carmina Gresham RN Future Appointment (/) 08/28/2024 2:20 PM CDT Office Visit [facility] - Rheumatology [address] [facility], [facility] [place] [phone] Kristen Mcgarry MD Progressive systemic sclerosis (HCC) (Primary Dx); Encounter for long-term (current) use of high-risk medication; Encounter for therapeutic drug monitoring; ILD (interstitial lung disease) (HCC) 08/28/2024 Travel from Last 3 Months Immunizations Immunization Administration Dates Next Due Covid [facility] primary monoval ent 12+ yr 0.3mL Purple [...] on file Legal Sex Female 9:53 AM SENIOR NET SOFTWARE DEVELOPER Gender Identity Not on file Sexual Orientation [...] Office Visit [facility] - Pulmonology [address] [place] [address], [place] [address] Rolando Kathleen MD [address] [place] [address] 2[address] DIV OF PULMONARY/[place] [phone] 02/11/2025 8:30 AM SENIOR NET SOFTWARE DEVELOPER Office Visit [facility] - Pulmonology [address] [place] [address], [place] [address] Rolando Kathleen MD [address] [place] [address] [address] DIV OF PULMONARY/[place] [phone] 02/11/2025 3:00 PM SENIOR NET SOFTWARE DEVELOPER Office Visit [facility] - Rheumatology [address] [place] [phone] Kristen Mcgarry MD [address] [place] [address] [address] [place] [phone] Health Maintenance Due Date Last Done Comments [...] 7:09 AM CDT Performed at: - [facility] [address] [id number] Protocol Officer: Jarad Hooper PhD, Phone: [phone] Kristen Mcgarry MD LAB - CHEMISTRY ORDERA BLES Final Result Performing Organization Address [facility]/ZIP Co de Phone Number [facility] INSURANCE BILL [address] [place] [address] * (ABNORMAL) ERYTHROCYTE SEDIMENTATION RATE (08/23/2024 11:39 AM CDT) Pathologist [facility] Erythrocyte Sedimentation Rate Westergren 33(H) 0 - 32 mm/hr [facility] INSURANCE BILL Blood BLOOD SPECIMEN / Unknown 08/23/2024 11:39 AM CDT 08/23/2024 Narrative [facility] INSURANCE BILL - 08/24/2024 7:09 AM CDT Performed at: [facility] [address] [id number] Protocol Officer: Jarad Hooper PhD, Phone: [phone] Kristen Mcgarry MD LAB - HEMATOLOGY ORDER STAR Final Result Performing Organization Address [facility] de Phone Number [facility] INSURANCE BILL [address] [place] [address] * CBC WITH DIFFERENTIAL (08/23/2024 11:39 AM [...] 08/24/2024 7:09 AM CDT Performed at: [address] [id number] Protocol Officer: Jarad Hooper PhD, Phone: [phone] us Kristen Mcgarry MD LAB - HEMATOLOGY ORDER STAR Final Result [facility] INSURANCE BILL [address] [place] [address] * (ABNORMAL) COMPREHENSIVE METABOLIC PANEL (08/23/2024 11:39 AM CDT) [facility] Glucose 66(L) 70 - 99 mg/dL [facility] [...] 08/24/2024 7:09 AM CDT Performed at: - [address] [id number] Protocol Officer: Jarad Hooper PhD, Phone: [phone] us Kristen Mcgarry MD LAB - CHEMISTRY ORDERA BLES Final Result Performing Organization Address City/State/[facility] Co de Phone Number [facility] INSURANCE BILL [address] [place] [address] from Last 3 Months Insurance [facility] * Guarantor: AMARJIT MONTES DE OCA Account Type Relation to Patient Date of Phone Billing Address Personal/Family Other Advance Directives * Full Code (Latest Code Status on File) Date Activated Date Inactivated Comments 09/27/2021 8:49 AM 09/27/2021 10:22 AM Care Teams Cosmetician Relationship Specialty Start Date End Date Mickey Gillespie PA-C [address] [place] [address] PCP - General Physician Castings Drafter 09/20/21 Rosalio Rankin MD [address] [facility] [address] [place] [address] Cardiology 09/20/21 Kristen Mcgarry MD [address] [place] [phone] Rn Chronic Rheumatology 10/04/24
== END 2024-10-31 16:00 | disposition home or self-care (01) ==
PROVIDERS: PCP Nurse Practitioner; Visit Provider Nurse Practitioner
DX: J84.9 Interstitial pulmonary disease, unspecified (principal)
CPT/HCPCS: 71046